=== PATIENT | male | born 1945 | race Caucasian/White ===

== ENCOUNTER 2023-11-18 14:17 | Outpatient (AMB) | payer MEDICARE, OTHER, SELFPAY ==
--- NOTE | 2023-11-18 14:31 | MHC.OFFVIS ---
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 (will get [facility] record) Improvement Analyst Required: No Accompanied by: Spouse Allergies lisinopril Adverse Reaction (Mild, Verified 11/18/23 14:39) Cough Medication List - Last Reconciled 11/18/23 by Nabil Mar MD amlodipine 5 mg PO DAILY qszwlfz-ilrofivfczomu-pzfaooij 250-250-65 mg (Excedrin Extra Strength) 2 tabs PO Q6H PRN atorvastatin 40 mg PO DAILY benzonatate 100 mg PO BID PRN cholecalciferol (vitamin D3) 50 mcg PO DAILY coQ10 (ubiquinol) (Qunol Devante CoQ10) 100 mg PO DAILY diphenhydramine HCl (Benadryl Allergy) 25 mg PO BEDTIME PRN fluticasone propionate 50 mcg/actuation (Flonase Allergy Relief) 1 spray intranasal DAILY furosemide (Lasix) 20 mg PO DAILY magnesium glycinate mg PO metoprolol succinate ER (Toprol XL) 100 mg PO DAILY olmesartan 5 mg PO DAILY HPI Comments Details: Allen is here for consultation regarding coronary disease. 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 Apparently one of his friends referred him to our group. He has a history of coronary artery disease and underwent an LAD stent around 2003. At that time, it seems that he really did not have any NSTEMI or angina but some abnormal test but not very clear what happened. Any case, he has been stable from coronary status since that time. He has a history of hypertension and that has been difficult to manage recently. Apparently his calcium was going high and hence it was thought that the hydrochlorothiazide that he was taking might play a role and it was stopped. After that, his blood pressures have been running higher. Some med changes have been made through primary care including addition of amlodipine. Losartan has been switched to olmesartan. However, blood pressure is still on the higher side but lower than office reading here. Otherwise, for the most part he is doing fine. No clear-cut angina or in fact any cardiac symptoms. He would like to establish care with us. [facility] Medical History (Updated 11/18/23 @ 16:04 by Nabil Mar MD) Back pain Transient ischemic attack Osteoarthritis Hydrocele Cataract Left anterior fascicular block Right bundle branch block PVC (premature ventricular contraction) Essential hypertension Atherosclerotic cardiovascular disease Surgical History (Updated 11/18/23 @ 16:04 by Nabil Mar MD) H/O spinal fusion Family History Father Heart attack Diabetes Social History (Updated 11/18/23 @ 14:45 by Clemencia Mack CMA) Alcohol intake: current Comment: 1-2 glasses of wine daily Patient Tobacco Use Status: Former Tobacco user Review of Systems Const Denies chills, Denies daytime sleepiness, Denies fatigue, Denies fever(s), Denies poor appetite, Denies snoring, Denies stops breathing during sleep, Denies weakness, Denies weight gain and Denies weight loss Eyes Denies loss of vision ENT Denies dizziness and Denies hearing loss Card Denies chest pain, Denies irregular heart rhythm, Denies claudication, Denies leg edema, Denies lightheadedness, Denies palpitations, Denies dyspnea on exertion and Denies orthopnea Resp Denies cough, Denies excessive phlegm production, Denies dyspnea on exertion, Denies snoring and Denies wheezing GI Denies abdominal pain, Denies hematochezia, Denies change in bowel habits, Denies nausea and Denies vomiting Denies dysuria and Denies urinary frequency Musc Denies arthralgias, Denies muscle weakness, Denies numbness and Denies other Skin/Breast Denies nail changes and Denies rash Neuro Denies Abnormal speech present, Denies dizziness, Denies loss of vision, Denies memory loss, Denies numbness and Denies weakness Psych Denies depression and Denies memory loss Endo Denies fatigue and Denies palpitations Richard/Lymph Denies easy bruising Aller/Immun Denies wheezing Physical Exam Vital Signs: Last Vital Signs Pulse 57 11/18/23 14:38 BP 164/80 H 11/18/23 14:38 BMI result Body Mass Index 32.0 Const General: comfortable and no acute distress Orientation/consciousness: patient oriented x3 HEENT Other: Unremarkable Head: Yes normal to inspection Neck Neck: Yes normal visual inspection Chest Chest palpation & inspection: normal inspection of the chest Resp Auscultation: clear to auscultation bilaterally Cardio Palpation: normal PMI Heart sounds: S1 normal heart sound present, S2 normal heart sound present, no gallops, no murmurs and no rubs GI Palpation (GI): Soft to palpation Back/Spine/Pelvis Other: unremarkable Skin General skin exam: no rashes or lesions noted Neuro General: patient oriented x3 Speech: No Abnormal speech present Extrem General: Yes normal to inspection Psych Mental Status: mental status grossly normal Office Procedures EKG Details: EKG with underlying sinus bradycardia at 57/Min; right bundle-branch block pattern; inferior and anterolateral T inversions. We do not have any prior EKGs for comparison. Requested. Per description, last EKG from 2002 had reported sinus rhythm, PACs, 60/Min; right bundle-branch block/left anterior fascicular block. [id number], Complete Assessment & Plan Assessment & Plan (1) Atherosclerotic cardiovascular disease: Code(s): I25.10 - Atherosclerotic heart disease of [place] coronary artery without angina pectoris Category: Medical Plan: History of LAD stent at [facility] -2003. At that time, no significant lesions in circumflex/RCA. Ideally, baby aspirin but he takes a combination pill which has a higher dose of aspirin. There is slightly had chance of GI bleeding risk and we discussed that today. Avoid other agents like NSAIDs. Continue statins. LDL is fairly well controlled. Last LDL 60 mg/dL. Triglycerides slightly high at 190 mg/dL. LFTs slightly abnormal but he believes he has had hepatitis many years ago. In the echocardiogram from [facility] from 2022-LVEF 55%; moderate diastolic dysfunction; no significant LVH; mild left atrial dilatation. Will obtain the last stress test which he believes is probably a few years ago. (2) Essential hypertension: Code(s): I10 - Essential (primary) hypertension Category: Medical Plan: Home blood pressures are slightly lower than current reading but still not normal. Off HCTZ due to hypercalcemia. Current meds can be optimized further. We can go up on the amlodipine. There is a concern for leg swelling but I do believe it may not be all medication related and could be just orthopedic related to ankle issues. He will take 2 of the amlodipine 5 mg tablets and make sure he does not get any other issues like worsening leg swelling. If so, we can make amlodipine 10 mg as the new dose. Otherwise, he is also on olmesartan and that may need to be increased in the future. Or just go back to his previous dose of Losartan. Doubt any true secondary hypertension causes but will keep that in mind. (3) PVC (premature ventricular contraction): Code(s): I49.3 - Ventricular premature depolarization Category: Medical Plan: History of PVCs, but do not see any active issues. Coding Level of Care Code New Pt Level 4 (80846) Diagnoses Atherosclerotic cardiovascular disease I25.10 Essential hypertension I10 PVC (premature ventricular contraction) I49.3 CPT Codes EKG - CPT: 02629-[id number], Complete ([id number])
[2023-11-18 14:38] VITALS: BP 164/80; PULSE 57; BMI 32.0
== END 2023-11-18 15:23 | disposition home or self-care (01) ==
PROVIDERS: PCP Internal Medicine; Visit Provider Internal Medicine
DX: I25.10 Atherosclerotic heart disease of native coronary artery without angina pectoris (principal); I10 Essential (primary) hypertension; I49.3 Ventricular premature depolarization
CPT/HCPCS: 93010; 99204

== ENCOUNTER → 2023-11-18 14:17 | Outpatient (BNVA) | payer MEDICARE, OTHER, SELFPAY | PROVIDERS: PCP Internal Medicine; Visit Provider Internal Medicine | DX: I25.10 Atherosclerotic heart disease of native coronary artery without angina pectoris (principal); I10 Essential (primary) hypertension; I45.2 Bifascicular block; I49.3 Ventricular premature depolarization | CPT/HCPCS: 93005; 99202 ==

== ENCOUNTER → 2023-12-30 08:02 | Outpatient (REF) | payer MEDICARE, OTHER, SELFPAY ==
--- NOTE | ~2023-12-30 | NM_ITS ---
Lexiscan Myocardial perfusion study Indication: Precordial chest pain to evaluate for myocardial ischemia Technique: The patient was brought in for a Lexiscan perfusion study on 12/30/2023 and was injected 0.4 mg of Lexiscan intravenously. Within a minute of this injection 30 mCi of sestamibi was given intravenously. Images were obtained using the SPECT gamma camera interlaced with the gating device. Images were obtained in supine position. Resting perfusion study was performed on 01/01/2024. Patient was administered 30 mCi of sestamibi intravenously at rest. Images were then obtained in supine position. Images obtained without without CT attenuation. Total DLP 80 mGy-cm. Images were processed with the software and compared side to side in short axis, horizontal long axis and vertical long axis views. Findings: The stress perfusion study showed nonattenuated images show moderately reduced uptake in the inferior, inferoseptal and absent uptake in the mid and distal inferolateral and absent uptake in the basal inferolateral wall of the LV myocardium. Attenuated corrected images shows absent uptake in the basal inferolateral with mildly reduced uptake in the basal lateral wall of the LV myocardium.. The gated study shows normal LV systolic function with calculated LVEF of 55%. LV cavity is mildly dilated in size. The gated study shows reduced wall thickening and contraction of basal inferolateral segments. Resting study shows no change in perfusion pattern compared to stress perfusion study. Gating at rest reveals well inferolateral wall motion with ejection fraction at 47%. The findings are consistent with fixed basal inferolateral defect consistent with possible infarct in that area. Severe ischemia cannot be entirely ruled out although less likely. No clear reversible defect in the other segments.. NM/NM cardiolite stress test Impression: 1. Myocardial perfusion imaging study shows no evidence for ischemia would basal inferolateral myocardial infarction. 2. Gated LVEF is 55% 3. Transient ischemic dilatation not present Nondiagnostic changes on EKG. Electronically signed by: Chadwick Arroyo MD 01/01/2024 04:24 PM EDT
--- NOTE | 2023-12-30 08:09 | CA_ITS ---
Acquisition Time: 2023-12-30 09:01:43 Total Exercise Time: 00:02:00 Test Indications: Chest Pain Medications: SEE H Protocol: LEXISCAN Max HR: 085 BPM 59% of Pred: 143 BPM Max BP: 160/082 mmHG Max Work Load: 1.0 METS Pharmacological stress test with Lexiscan while sitting and marching in place, without anginal symoptoms, with isolated PVCs , ventricular cuplets, with resting HTN, with normotensive response to injection, with nondiagnoisitic EKGs. Nuclear images pending. Test reviewed with Dr. Mar. Referred By: Nabil Mar Overread By: Mary Kate Sylvester
--- NOTE | 2023-12-30 08:09 | CA_ITS ---
Transthoracic Echocardiogram Patient (Last, First, Middle): Allen Willis, Gender: Male Date of : 1945 Age: 78 Procedure Date: 12/30/2023 Procedure Type: Transthoracic Echocardiogram Location: OP Height: 167.64 cm Weight: 86.18 kg BSA: 1.96 m2 Heart Rate: 61 bpm BP: 165 / 90 mmHg Urologist: CHAPINCITO Referring MD: Nabil Mar MD Symptoms: I25.10 - Atherosclerotic heart disease of [place] coronary artery without... Study Quality: Adequate w/Contrast ECG Rhythm: Sinus Conclusions: - The left ventricular systolic function is normal. The calculated ejection fraction is 63% by biplane method. - The basal inferolateral segment is hypokinetic. - No obvious valvular pathology seen on this study. Findings Procedure Information Contrast agent, definity, is being given per protocol without apparent complications. Left Ventricle Normal left ventricular cavity size. There is mildly increased left ventricular wall thickness. The left ventricular systolic function is normal. The calculated ejection fraction is 63% by biplane method. Evidence suggests grade I (mild) diastolic dysfunction. Wall Motion Rest Echo Findings The basal inferolateral segment is hypokinetic. Right Ventricle Mildly increased right ventricular cavity size. There is normal right ventricular systolic function. Atria Both atria are normal in size. Aortic Valve There is a normal trileaflet aortic valve. There is no aortic valve stenosis. There is no aortic valve regurgitation. Mitral Valve The mitral valve appears normal. There is no mitral valve regurgitation. There is no mitral valve stenosis. Pulmonic Valve The pulmonic valve is likely normal. Tricuspid Valve There is trace tricuspid valve regurgitation. There is no evidence of pulmonary hypertension. Great Vessels The asc aorta is normal in size. Venous The inferior vena cava is mildly dilated and collapses greater than 50% with inspiration. Pericardium/Pleural There is no evidence of pericardial effusion. Prior Study Comparison No prior study available for comparison. Recommendations, Care & Conclusions No obvious valvular pathology seen on this study. Measurements 2D Linear Measurements IVSd: 1.11 0.6-0.9/0.6-1.0 cm LVIDd: 4.72 3.9-5.3/4.2-5.9 cm LVIDd Index: 2.41 2.4-3.2/2.2-3.1 cm/m2 LVIDs: 2.82 2.0-3.6 cm LVPWd: 1.04 0.7-1.1 cm LA Diam: 4.80 2.7-3.8/3.0-4.0 cm LAIDs Index: 2.45 1.5-2.3 cm/m2 LV Mass: 227.85 67-162/88-224 g LV Mass Index: 116.25 43-95/49-115 g/m2 LVOT Diam: 2.00 3.0+(-)1.3 cm 2D Systolic Function EF 4C: 56.70 >55% EF 2C: 69.20 >55% EF BiP: 63.20 >55% Mitral Valve MV Pk E: 0.40 MV PK A: 1.01 MV Decel Time: 342.00 E/A: 0.40 E'Lateral: 6.85 E'Medial: 4.68 E/E' Med: 8.60 E/E' Lat: 5.90 PHT: 100.00 MVA PHT: 2.20 Decel Evans: 1.18 Aortic Valve AoV Pk Daquan: 1.55 AoV Mn Daquan: 1.04 AoV VTI: 0.37 AoV Pk Grad: 10.00 Aov Mn Grad: 5.00 WILLIAM Cont.VTI: 2.15 LVOT LVOT Pk Daquan: 1.02 LVOT Mn Daquan: 0.69 LVOT VTI: 0.26 LVOT Pk Grad: 4.00 LVOT Mn Grad: 2.00 LVOT Diam: 2.00 LVOT Area: 3.14 Diastolic Function MV Pk E: 0.40 MV Pk A: 1.01 E/A: 0.40 E'Medial: 4.68 E/E' Med: 8.60 E' Laterial: 6.85 E/E' Lat: 5.90 Right Ventricle TAPSE (mm): 30.00 TVS' Daquan: 13.70 Great Vessels Aorta Sinus of Valsalva: 3.10 2.0-3.5 cm Ao Asc: 3.30 2.1-3.4 cm Pulmonary Valve PV Pk Daquan: 1.15 Peak PV Grad: 5.00 Updated in Other Vendor System with Status of Final Nabil Mar MD electronically signed on 01/01/2024 11:05:02 AM with status of Final
== END ==
LOC: HO.CARD 08:02
PROVIDERS: PCP Internal Medicine; Visit Provider Internal Medicine
DX: R07.2 Precordial pain (principal); I25.119 Atherosclerotic heart disease of native coronary artery with unspecified angina pectoris
CPT/HCPCS: 78452; 93017; 93306; A9500; J0280; J2785; Q9957

== ENCOUNTER → 2023-12-30 08:09 | Outpatient (BNV) | payer MEDICARE, OTHER, SELFPAY | PROVIDERS: PCP Internal Medicine; Visit Provider Nurse Practitioner | DX: R07.2 Precordial pain (principal); I25.10 Atherosclerotic heart disease of native coronary artery without angina pectoris; I51.89 Other ill-defined heart diseases; R93.1 Abnormal findings on diagnostic imaging of heart and coronary circulation | CPT/HCPCS: 78452; 93016; 93018; 93320; 93325; 93350; 93352 ==

== ENCOUNTER 2024-01-22 10:14 | Outpatient (REF) | payer MEDICARE, OTHER, SELFPAY ==
--- NOTE | ~2024-01-22 | US_ITS ---
EXAMINATION: US VENOUS BILATERAL LOWER EXTREMITIES (REFLUX EXAM) CLINICAL INDICATION: Chronic venous insufficiency COMPARISON: None TECHNIQUE: Color flow triplex imaging and compression Doppler was performed to evaluate both the deep and the superficial systems bilaterally. To evaluate the superficial system, the examination was performed in the upright position. Color-flow Doppler ultrasound and compression ultrasound were utilized. In addition, maneuvers were utilized to demonstrate reflux. FINDINGS: 1. DEEP VENOUS ULTRASOUND OF THE RIGHT LOWER EXTREMITY: Respiratory variation, normal compression and augmented flow are noted in the right common femoral vein as well as the right popliteal vein and there is no evidence of deep venous thrombosis at these locations. There is no evidence of reflux in the deep system in either the common femoral vein or the popliteal vein. There is no evidence of a Jim's cyst. 2. SUPERFICIAL ULTRASOUND WITH DOPPLER OF RIGHT LOWER EXTREMITY: The right great saphenous vein at the saphenofemoral junction measures 7 mm, at the proximal thigh 6 mm, at the mid thigh 5 mm, above the knee 4 mm, at the knee 4 mm, ixfdx-hcy-fuyy 4 mm, midcalf 4 mm and at the ankle measures 4 mm. There is reflux in the great saphenous vein at the ankle for 2.1 seconds Duplicated Right Great Saphenous Vein: There is a 3 mm accessory lateral saphenous that does not reflux The right small saphenous vein measures 4 mm and shows no reflux. Accessory Vein of Giacomini: None Incompetent Perforators: None Varices Present: Some nonrefluxing 0.3 cm varices are noted in the proximal calf. 3. DEEP VENOUS ULTRASOUND OF THE LEFT LOWER EXTREMITY: Respiratory variation, normal compression and augmented flow are noted in the left common femoral vein as well as the left popliteal vein and there is no evidence of deep venous thrombosis at these locations. There is no evidence of reflux in the deep system in either the common femoral vein or the popliteal vein. There is no evidence of a Jim's cyst. 4. SUPERFICIAL ULTRASOUND WITH DOPPLER OF LEFT LOWER EXTREMITY: Left great saphenous vein at the saphenofemoral junction measures 7 mm, at the proximal thigh 4 mm, at the mid thigh 4 mm, above the knee 3 mm, at the knee 4 mm, [id number]-[id number] 4 mm, midcalf 3 mm and at the ankle measures 4 mm. There is reflux present of greater than 2 seconds below the knee in the left great saphenous vein. Duplicated Left Great Saphenous Vein: There is a 3 mm accessory left saphenous vein that does not reflux. The left small saphenous vein measures 3 mm and and demonstrates 0.6 cm of reflux in the distal calf Accessory Vein of Giacomini: None Incompetent Perforators: None. Varices Present: 0.3 cm varix is noted in the mid calf. There is a 0.5 cm area of shadowing calcification seen in the left mid calf which could represent a calcified varix. US/US venous insuf bilat IMPRESSION: 1. No evidence of reflux or thrombus in the common femoral veins or popliteal veins bilaterally. 2. There is reflux in the right great saphenous vein at the ankle. 3. There is reflux in the left great saphenous vein below the knee. 4. There is reflux in the left small saphenous vein in the distal calf. Electronically signed by: Howie Mann MD 01/25/2024 10:20 AM EDT
== END 2024-01-22 10:15 | disposition home or self-care (01) ==
LOC: HO.US 10:14
PROVIDERS: PCP Internal Medicine; Visit Provider Internal Medicine
DX: I87.2 Venous insufficiency (chronic) (peripheral) (principal)
CPT/HCPCS: 93970

== ENCOUNTER 2024-02-23 12:56 | Outpatient (AMB) | payer MEDICARE, OTHER, SELFPAY ==
--- NOTE | 2024-02-23 13:14 | MHC.OFFVIS ---
Vital Signs 02/23/24 13:15 Height 5 ft 6 in Weight 198 lb 6.656 oz BMI 32.0 BP 140/78 H Blood Pressure Location Lt brachial Position Sitting Pulse 72 Pulse Source Pulse Oximeter Intake Visit Reasons: 3 mth f/up Allergies lisinopril Adverse Reaction (Mild, Verified 11/18/23 14:39) Cough Medication List - Last Reconciled 02/23/24 by aNbil Mar MD amlodipine 10 mg PO DAILY nczflfn-jtdqlcutkyrmq-zhrgrhxl 250-250-65 mg (Excedrin Extra Strength) 2 tabs PO Q6H PRN atorvastatin 40 mg PO DAILY cholecalciferol (vitamin D3) 50 mcg PO DAILY diphenhydramine HCl (Benadryl Allergy) 25 mg PO BEDTIME PRN furosemide 40 mg PO DAILY magnesium glycinate mg PO metoprolol succinate ER (Toprol XL) 100 mg PO DAILY olmesartan 40 mg PO DAILY HPI Comments Details: Allen returns for follow-up. He was previously seen regarding coronary artery disease. He lives in the [facility] but apparently has a problem having a consistent community health worker and hence he would like to be seen here. Apparently one of his friends referred him to our group. He has a history of coronary artery disease and underwent an LAD stent around 2003. At that time, it seems that he really did not have any NSTEMI or angina but some abnormal test but not very clear what happened. Any case, he has been stable from coronary status since that time. He has a history of difficult to manage hypertension. He was on hydrochlorothiazide but apparently the calcium was going up and it was stopped. His current meds include olmesartan, metoprolol and amlodipine and he has good from that standpoint. Home diary shows good blood pressure control. He does not have any angina or in fact any cardiac symptoms at all. He is able to stay active without any cardiac limitations. He does notice some additional leg swelling after starting amlodipine but not too bothersome. Overall, he seems to be satisfied. COUNT INCLUDES THE [facility] Medical History (Updated 02/23/24 @ 16:04 by Nabil Mar MD) Back pain Transient ischemic attack Osteoarthritis Hydrocele Cataract Left anterior fascicular block Right bundle branch block PVC (premature ventricular contraction) Essential hypertension Atherosclerotic cardiovascular disease Surgical History (Updated 11/18/23 @ 16:04 by Nabil Mar MD) H/O spinal fusion Family History Father Heart attack Diabetes Social History (Updated 11/18/23 @ 14:45 by Clemencia Mack CMA) Alcohol intake: current Comment: 1-2 glasses of wine daily Patient Tobacco Use Status: Former Tobacco user Review of Systems Const Denies weakness ENT Denies dizziness Card Denies chest pain, Denies chest pain with activity, Denies syncope, Denies rapid heart rate, Denies pedal edema, Denies edema, Denies leg edema, Denies lightheadedness, Denies palpitations, Denies dyspnea, Denies dyspnea on exertion and Denies orthopnea Resp Denies cough, Denies dyspnea and Denies dyspnea on exertion GI Denies hematochezia and Denies change in stool character Musc Denies abnormal gait, Denies muscle cramps, Denies muscle weakness, Denies numbness, Denies radiating pain into limb and Denies tingling Neuro Denies Abnormal speech present, Denies abnormal gait, Denies dizziness, Denies syncope, Denies numbness, Denies tingling and Denies weakness Endo Denies palpitations Physical Exam Vital Signs: Last Vital Signs Pulse 72 02/23/24 13:15 BP 140/78 H 02/23/24 13:15 BMI result Body Mass Index 32.0 Const General: comfortable and no acute distress Orientation/consciousness: patient oriented x3 HEENT Other: Unremarkable Head: Yes normal to inspection Neck Neck: Yes normal visual inspection Chest Chest palpation & inspection: normal inspection of the chest Resp Auscultation: clear to auscultation bilaterally Cardio Palpation: normal PMI Heart sounds: S1 normal heart sound present, S2 normal heart sound present, no gallops, no murmurs and no rubs GI Palpation (GI): Soft to palpation Back/Spine/Pelvis Other: unremarkable Skin General skin exam: no rashes or lesions noted Neuro General: patient oriented x3 Speech: No Abnormal speech present Extrem Other: 1+ swelling, R>L General: Yes normal to inspection Psych Mental Status: mental status grossly normal Assessment & Plan Assessment & Plan (1) Atherosclerotic cardiovascular disease: Code(s): I25.10 - Atherosclerotic heart disease of [place] coronary artery without angina pectoris Category: Medical Plan: History of LAD stent at [facility] -2003. At that time, no significant lesions in circumflex/RCA. In the echocardiogram, LVEF 63%. Basal inferolateral hypokinesis. No significant valvular findings. Myocardial perfusion imaging study shows no ischemia. Basal inferolateral infarct. Findings discussed with patient. Clinically, he has got absolutely no angina. We discussed about possibility of a diagnostic catheterization but after reviewing options including medical therapy versus invasive strategies, we agreed on just stay on medical therapy as he has got no symptoms. He also would prefer that as opposed to catheterization. If any clear angina, that will need to be re-assessed and he will contact us immediately. Ideally, baby aspirin, but he takes a combination pill which has a higher dose of aspirin. There is slightly had chance of GI bleeding risk and that was discussed prior visit. Avoid other agents like NSAIDs. Continue statins. LDL is fairly well controlled. Last LDL 60 mg/dL. Triglycerides slightly high at 190 mg/dL. LFTs slightly abnormal but he believes he has had hepatitis many years ago. (2) Essential hypertension: Code(s): I10 - Essential (primary) hypertension Category: Medical Plan: Current regimen includes metoprolol, olmesartan, amlodipine. Home diary shows good control of blood pressures. Off hydrochlorothiazide due to history of hypercalcemia. If we stopped the amlodipine because of leg swelling, likely that it will rebound. Do not have any other alternatives apart from hydralazine or possibly spironolactone. Again we eventually decided to leave the meds without changes. (3) Venous insufficiency: Code(s): I87.2 - Venous insufficiency (chronic) (peripheral) Category: Medical Plan: In the recent venous ultrasound, reflux in the right great saphenous vein at the ankle; left great saphenous vein and left small saphenous vein. Discussed with Interventional Radiology on it was felt that it is not significant enough to cause any major issues. Hence recommended conservative therapy. He is using compression stockings and that can be continued. Plan Discussed with significant other. Coding Level of Care Code Est Pt Level 4 (18484) Diagnoses Atherosclerotic cardiovascular disease I25.10 Essential hypertension I10 Venous insufficiency I87.2
[2024-02-23 13:15] VITALS: BP 140/78; PULSE 72; BMI 32.0
== END 2024-02-23 13:47 | disposition home or self-care (01) ==
PROVIDERS: PCP Internal Medicine; Visit Provider Internal Medicine
DX: I25.10 Atherosclerotic heart disease of native coronary artery without angina pectoris (principal); I10 Essential (primary) hypertension; I87.2 Venous insufficiency (chronic) (peripheral)
CPT/HCPCS: 99214

== ENCOUNTER → 2024-02-23 12:56 | Outpatient (BNVA) | payer MEDICARE, OTHER, SELFPAY | PROVIDERS: PCP Internal Medicine; Visit Provider Internal Medicine | DX: I25.10 Atherosclerotic heart disease of native coronary artery without angina pectoris (principal); I10 Essential (primary) hypertension; I87.2 Venous insufficiency (chronic) (peripheral) | CPT/HCPCS: 99212 ==

== ENCOUNTER → 2024-04-05 10:16 | Outpatient (REF) | payer MEDICARE, OTHER, SELFPAY ==
--- OUTSIDE RECORDS SUMMARY | 2024-04-05 10:19 | XMS_ITS ---
Author Organization Bill Contreras MD Address [address] [place] [address] Care Team Providers Care Sandblaster Paint Sprayer Name Role Phone Gene Lopez MD Primary Care Provider Unavail able Bill Contreras [facility] [phone] Encounters Encounter Location Date Provider Diagnosis Bill Contreras MD [facility] [address] [facility] [place] [address] 11/05/2023 Bill Contreras PLAN OF TREATMENT No Information Progress Notes * Allen TOLLIVER ODOB: [birth year] (78 yo M)Acc No.[id number]:11/05/2023 Progress Notes Patient:??Allen TOLLIVER Provider:??Bill Contreras MD :1945?Age:78 Y?Sex:Ma le Date:11/05/2023 Address:[address] [id number] Pcp:Gene Lopez MD Subjective: * Chief Complaints: * ? * Medical History:?? Objective: Assessment: Plan: * Treatment: * Images: * Sign off status: Pending * Provider:??Bill Contreras MD Date:??
--- OUTSIDE RECORDS SUMMARY | 2024-04-05 10:19 | XMS_ITS | Patient Health Record ---
Author Organization Bill Contreras MD Address [address] [place], [place] [address] Care Team Providers Care Vendor Analyst Name Role Phone Gene Lopez MD Primary Care Provider Unavail able Bill Contreras Unavailable [phone] ALLERGIES Allergen (clinical drug ingredient) Drug/Non Drug Allergy documented on EMR Reaction Allergy Type Onset Date Status N.K.D.A. (uncoded) Unknown Allergy A ctive MEDICATIONS Medication SIG (Take, Route, Fr equency, Duration) Notes Start Date End Date Status Toprol XL Active Multivitamins Active Lipitor Active Hydrochloric Acid Ac tive Losartan Potassium A ctive Aspirin Active PROBLEMS Problem Type ICD Code Onset Dates Problem Status W/U Status Risk SNOMED Code Notes Problem Encounter for follow-up examination after completed treatment for conditions other than malignant neoplasm (Z09) Active confirmed History and physical examination, follow-up (786475792) Problem Encounter for other specified surgical aftercare (Z48.89) Active confirmed Postoperative care (259723814) Problem Lumbar spondylosis (M47.816) Active confirmed Lumbar spondylosis (831720349) Problem Lumbar spondylosis with myelopathy (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) Active confirmed 19521407 Problem Thoracic spondylosis (M47.814) Active confirmed Thoracic spondylosis (987694861) Encounters Encounter Location Date Provider Diagnosis Bill Contreras MD [facility] [address] [place] [address] 07/23/2023 Bill Contreras MD PC [address] [place] [address] 05/21/2023 Bill Contreras MD PC [address] [place] [address] 07/25/2023 Bill Contreras MD PC [address] [place] [address] 08/28/2023 Bill Contreras MD PC [address] [place] [address] 08/28/2023 Bill Contreras MD PC [address] [place] [address] 10/01/2023 Bill JIMENEZ [address] [place] [address] 10/01/2023 Bill Contreras MD PC [address] [place] [address] 10/01/2023 Bill Contreras MD PC [address] [place] [address] 10/03/2023 Bill Contreras MD PC [address] [place] [address] 10/07/2023 Bill Contreras MD PC [address] [place] [address] 11/04/2023 Bill Contreras MD PC [address] [place] [address] 11/04/2023 Bill Contreras MD PC [address] [place] [address] 07/23/2023 Bill Contreras Encounter for follow-up examination after completed treatment for conditions other than malignant neoplasm Z09 ; Encounter for other specified surgical aftercare Z48.89 and Lumbar spondylosis M47.816 Bill Contrersa MD PC [address] [place] [address] 11/05/2023 Bill Contreras ASSESSMENTS Encounter Date Diagnosis Assessment Notes Treatment Notes Treatment Clinical Notes Section Notes 07/23/2023 Encounter for follow-up examination after completed treatment for conditions other than malignant neoplasm (ICD-10 - Z09) Mr. Willis is a 77 y/o M, s/p S93-Texjye PSF w/ L5-S1 TLIF (02/23/2019). He is [...] specified surgical aftercare (ICD-10 - Z48.89) Mr. Willis is a 77 y/o M, s/p P77-Wniohy PSF w/ L5-S1 TLIF (02/23/2019). He is [...] 07/23/2023 Lumbar spondylosis (ICD-10 - M47.816) Mr. Willis is a 77 y/o M, s/p C02-Mjccoh PSF w/ L5-S1 TLIF (02/23/2019). He is [...] onset of pain, weakness, or numbness/tinglin g. PLAN OF TREATMENT Pending Test Test Name Order Date COMPLETE BLOOD COUNT W PLT - CBC COMPLETE BLOOD COUNT W PLT - CBC 019 COMPLETE BLOOD COUNT W PLT - CBC 019 COMPLETE BLOOD COUNT W PLT - CBC 019 COMPLETE BLOOD COUNT W PLT - CBC 019 ELECTROLYTES - LYTES 02/23/2019 PASU PANEL - PASU PANEL 02/04/2019 BASIC METABOLIC PANEL - BMP 02/27/2019 SODIUM - NA 02/25/2019 POTASSIUM - K 02/25/2019 GLUCOSE - GLU 02/23/2019 CREATININE - CR 02/25/2019 CALCIUM - CA 02/23/2019 MAGNESIUM - MG 02/23/2019 MAGNESIUM - MG 02/27/2019 MAGNESIUM - MG 02/25/2019 MRSA/MSSA PCR 02/04/2019 TS Automated 02/23/2019 XM 02/23/2019 TSAPASU 02/04/2019 CT LUMBAR SPINE WITHOUT CONTR 08/16/2020 CT LUMBAR SPINE WITHOUT CONTR 09/30/2019 SURG 02/23/2019 CT Scan : Thoracic Spine 09/25/2021 Insurance Providers Payer Name Payer Address Payer Phone Subscriber Number Group Number Insured Name Patient Relationship to Insured Coverage Start Date Coverage End Date MEDICARE [address] [facility] [place] [id number] [phone] [id number] Allen Willis Self - patient is the insured [employer] Supplement [address] [place] [id number] Allen Willis Self - patient is the insured MEDICAL (GENERAL) HISTORY Medical History History ICD Code BPH Hyperlipidemia Hyperntesion CAD - SP cardiac stenting COPD - asthma OA Surgical History Surgery Date(Month/Year) right ankle fusion right MARIELLE left TKA cataract removal
--- OUTSIDE RECORDS SUMMARY | 2024-04-05 10:19 | XMS_ITS ---
Author Organization Bill Contreras MD Address [address] [facility] [address] [place], [place] [address] Care Team Providers Care Wilton Weaver Name Role Phone Gene Lopez MD Primary Care Provider Unavail able Bill Contreras [facility] [phone] REASON FOR VISIT RE:Surgery December 31 Encounters Encounter Location Date Provider Diagnosis Bill Contreras MD PC [address] [facility] [address] [place] [address] 11/04/2023 Bill Contreras PLAN OF TREATMENT No Information Progress Notes * Allen TOLLIVER ODOB: [birth year] (78 yo M)Acc No.[id number]:11/04/2023 Patient:??Allen TOLLIVER :1945?Age:78 Y?Sex:Jc le Address:[place], [address] * true * Date:??
--- OUTSIDE RECORDS SUMMARY | 2024-04-05 10:19 | XMS_ITS ---
Author Organization Bill Contreras MD Address [address] [facility] [address] [place], [place] [address] Care Team Providers Care Manufacturing Lab Technician Name Role Phone Gene Lopez MD Primary Care Provider Unavail able Bill Contreras [facility] [phone] REASON FOR VISIT Surgery December 31 Encounters Encounter Location Date Provider Diagnosis Bill Contreras MD PC [address] [place] [address] [place] [address] 11/04/2023 Bill Contreras PLAN OF TREATMENT No Information Progress Notes * Allen TOLLIVER ODOB: [birth year] (78 yo M)Acc No.[id number]:11/04/2023 Patient:??Allen TOLLIVER :1945?Age:78 Y?Sex:Jc charles Address:[place], [address] * true * Date:??
--- OUTSIDE RECORDS SUMMARY | 2024-04-05 10:20 | XMS_ITS | Data Portability ---
Author Organization [facility] Office Address [address] [place] [address] Care Team Providers Care Sandwich Hand Name Role Phone SEKOU BRADLEY Primary Care Provider [phone] Assessment Encounter Date Assessment Date Assessment LastModified by Organization Details LastModified Time 12/22/2019 12/22/2019 PLAN: The patient is doing quite well with this type of brace and is able to function, play golf, walk normally and safe. We had a discussion that since his broke after having it 2 years he is not able to use the brace at this time. I will send a note after reviewing his [place] medical record and discussion with him that this brace is necessary. He agrees with this plan and will follow up on a p.r.n. basis. Total time spent on the phone and reviewing the patient? s chart was 12 minutes, greater than 50% devoted to counseling and coordinating care. [email or web address] Not available 12/23/2019 19:06:49 10/10/2020 10/10/2020 Diagnostic Imaging: Grashey, axillary, and humerus views of Right shoulder shows severe decreased glenohumeral joint space narrowing, osteophyte formation. Normal acromiohumeral space. Assessment/Plan: This is a 75yo M who presents with right shoulder pain seeking second opinion regarding non-surgical management for his severe right shoulder osteoarthritis. Xray in office today exhibits changes consistent with severe osteoarthritis which correlates with XR and MRI from 3 weeks prior that patient received in [place]. Patient has full range of motion with very little pain. At this time, surgical intervention is not recommended. Educated patient regarding non-surgical interventions remaining including cortisone injections for pain. Offered cortisone injection for pain with activities but patient declined stating that he did not feel like he needs it at this time. Discussed with patient that if he starts exhibiting more pain in his shoulder with movement, he should re-present for cortisone injection trial. Recommended patient follow up with physical therapy to strengthen deltoid. He will keep me apprised of his status, and will follow up annually, with repeat x-rays to monitor his RIGHT shoulder arthritis. This visit is a [id number] visit during the COVID-19 pandemic. Based on my clinical judgment, I felt that this visit could not be provided safely and appropriately via TeleHealth. Based on available information prior to presentation, the patient had a high risk of significant worsening and potential functional impairment affecting ADLs if the visit was not completed today. The patient was seen in the office after following PPE use, Workforce Safety, Patient Safety and Infection Control protocols for all services provided today in accordance with [facility] and CDC Guidelines. There was additional practice expense incurred due to the Public Health Emergency. This additional expense includes but is not limited to: - Additional clinical staff and medical environmental technical officer time for pre-screening - Time spent reviewing COVID social distancing guidelines, precautions, instructions, and signage - Patient symptom checking upon arrival - Application, removal, and purchasing of additional PPE - Additional cleaning of exam room, equipment, supplies, as well as cleaning supplies for that purpose. This note was dictated with Compa. Please excuse any errors in spelling/transcri ption, which may have changed the context of the sentence. Not available 10/10/2020 15:14:48 08/02/2022 08/02/2022 ASSESSMENT Mr. Willis seems to be doing very well with his orthotic devices and I really cannot improve on those and I do not feel that surgical intervention would provide him any more pain relief or function, so therefore, he is going to continue non-operative treatment as is. He is in agreement with that plan and I will see him back on an as-needed basis. [id number] Not available 08/03/2022 02:15:42 01/27/2023 01/27/2023 Diagnostic Imaging: Grashey, axillary, and humerus views of left shoulder demonstrate good glenohumeral joint. Minimal signs of osteoarthritis including an inferior osteophyte. Assessment/ Plan: This is a 77-year-old male presenting today with left shoulder pain most likely in the setting of a biceps rupture and possible rotator cuff tear. We reviewed his x-rays and the anatomy of the shoulder in detail today. We will order an MRI to evaluate and plan to see him back via telehealth. He did ask about golfing and states that he is able to swing a golf club without pain. I do think it is reasonable for him to continue golfing at this point. We did talk about the bruising around the shoulder as a result of the biceps rupture. We discussed that this should improve with time. He is nontender over the biceps and is able to function, I would not recommend surgery at this time for biceps repair. Patient has no further questions at this time. We'll also schedule a TH for MRI FU. This note was dictated with speech recognition software. Please excuse any errors in spelling/transcri ption, which may have changed the context of the sentence. Not available 01/27/2023 10:12:19 07/23/2023 07/23/2023 PROCEDURE: bilateral shoulder injection MEDICATION: 2 mL Kenalog 40 mg/1 mL, and 2 mL of 0.25% bupivacaine plain (glenohumeral); 1 mL Kenalog 40 mg/1 mL and 1 mL 0.25% bupivacaine plain (subacromial) in each shoulder TREATMENT GIVEN: I confirmed that the patient does not have a history of prior adverse reactions, active infections, or relevant allergies. There was no erythema or warmth, and the skin was clear. After discussion of the risks including, but not limited to infection, localized soreness and swelling, reaction to medications, the patient consented to proceeding with the procedure.?? Under sterile conditions, the shoulder was prepped with alcohol and Betadine. Sterile ultrasound gel and the [employer] Ultrasound was used to ensure accurate needle placement. Using a medial approach and a 20-gauge spinal needle, the glenohumeral injection was performed. The needle was then redirected to the subacromial space, placement confirmed with the ultrasound, and the subacromial injection was performed. Ultrasound images were scanned into the patient's chart. The injection was completed without complication and a Band-Aid was applied. The procedure was repeated on the opposite shoulder. The patient tolerated the procedure well and was instructed to avoid strenuous activity for the next 24-48 hours and use ice, NSAIDs, or Tylenol for pain as needed.?? Not available 07/23/2023 14:55:25 Plan of Treatment Reminders Order Date Submit Date Provider Last Modified By Organization Details Last Modified Time Details Appointments None recorded. Lab None recorded. Referral None recorded. Procedures None recorded. Surgeries None recorded. Imaging MRI, shoulder, w/o contrast - Left shoulder MRIPAS, please call pt to schedule, thank you 2022 023 [email or web address] 3 [facility] [address] [place] [address], [address], 06:53:56 Medication Orders None recorded. Patient TargetsNo targets recorded. Patient InstructionsNo instructions recorded. Reason for Referral None Reported. Results Created Date Observation Date Name Description Value Unit Range Abnormal Flag Note LastModifiedBy Organization Detail LastModifiedTime 08/03/19 img:x r foot and ankle left 5 views No observ ation record ed. [facility] [address], [address] 08/02/2022 15:14:40 08/03/19 img:x r foot and ankle right 5 views No observ ation record ed. [facility] [address], [address] 08/02/2022 15:14:40 08/03/19 23 08/02/2022 xr foot and ankle left 5 views Fin al Report EXAM#: [id number] PROCED URE: DXR 0038 XR FOOT AND ANKLE LEFT 5 VIEWS Aug 02 2022 12:30P M CLINIC AL INDICA TION: PAIN IN LEFT FOOT AND ANKLE Compar jd: 2022 - FINDIN GS: LEFT Ankle bones and joints demons trates tibiot alar valgus alignm ent with marked tilt of the talus, result ing in narrow ing of the medial ankle mortis e and wideni ng latera lly. Superi or aspect of the medial gutter is widene d with corres pondin g wideni ng of the inferi or aspect of the latera l gutter . Small osteop hytes are eviden t. Foot bones and joints demons trates minima l great toe metata rsopha langea l joint space narrow ing. NUMBER OF IMAGES : 6 Report ed by : BRADLEY BOUDREAUX M.D. On: Aug 02 2022 2:27P Signed by: BRADLEY BOUDREAUX M.D. On: Aug 02 2022 2:27[facility] [address] [place], [address], 08/02/2022 15:14:39 08/03/19 23 08/02/2022 xr foot and ankle right 5 views Fin al Report EXAM#: [id number] PROCED URE: DXR 0039 XR FOOT AND ANKLE RIGHT 5 VIEWS Aug 02 2022 12:30P M CLINIC AL INDICA TION: PAIN IN RIGHT FOOT AND ANKLE Compar jd: 2022 - FINDIN GS: RIGHT Ankle bones and joints demons trates 2 intact screws and 16 the tibiot alar joint with solid osseou s fusion . No hardwa re compli cation . Subtal ar joint is congru ent. Mild narrow ing of the talona vicula r joint with small dorsal spurri ng. Calcan eocubo id joint is congru ent. Foot bones and joints demons trates mild hallux valgus . NUMBER OF IMAGES : 6 Report ed by : BRADLEY BOUDREAUX M.D. On: Aug 02 2022 2:28P Signed by: BRADLEY BOUDREAUX M.D. On: Aug 02 2022 2:28P [address] [facility] [address] [place], [address], 08/02/2022 15:14:39 02/08/20 23 02/06/2023 MRI, velma mello, w/o karan Arriola in MRI Center [facility] Access ion Number : [id number] Valerie allen Name: Levy Allen alejandre Jocelynbob magaña Record Number : [id number] Date of : 1945 Date of Exam: 2022 Referr ing Physic mono: Norman Patel [employer] [address] [place] [id number] Exam: MR Should er (C-) CPT 96078 - Left Room Descri ption: Donte Siem Espr 1.5 Clinic al Histor y: Severe left should er pain. Biceps pain. Techni que: MRI of the latera l should er was perfor med withou t intrav enous contra st. Compar jd: None. Findin gs: Bone: Overal l bone marrow signal is mildly hetero geneou s withou t marrow infilt ration . Modera te size inferi or tonya l head osteop hyte format ion. Abnorm al narrow ing of the acromi ohumer al interv al. 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 AC joint: Modera te AC joint arthro sun with large infrac lavicu lar and subacr omial spur format ion. Rotato r cuff: Full thickn ess rotato r cuff tear involv ing the entire ty of the supras pinatu s and infras pinatu s with retrac tion just medial to the glenoi d. High grade articu lar surfac e tear throug hout the footpr int of the subsca pulari s. The teres minor appear s intact . Modera te fatty atroph y of spinat us and supras pinatu s. Mild fatty atroph y of the subsca pulari s. Modera te edema along the anteri or latera l aspect of the deltoi d myoten dinous juncti on. Hetero geneou s area of increa sed T2 signal measur ing 5.7 x 1.4 x 1.7 cm (SI by AP by TRV). Scatte red within this region or a few areas of increa sed T1 signal . Glenoi d labrum and biceps tendon : Labrum is diffus caitlin degene rated. Partia l thickn ess tearin g of the intra- articu lar biceps tendon . The biceps remain s within the bicipi dontae groove . Impres bee: 1. Hetero geneou s collec tion in the anteri or latera l deltoi d on along the myoten dinous juncti on, likely reflec ting intram uscula r hemato ma surrou nding edema. Correl ate with histor y of trauma . This could reflec t hemato ma associ ated with muscul ar tear adjace nt to the myoten dinous juncti on. 2. Massiv e rotato r cuff tear involv ing all the supras pinatu s and infras pinatu s with associ ated fatty atroph y, compat ible with chroni c tear. 3. High grade articu lar surfac e tearin g of the subsca pulari s throug hout the footpr int. 4. Advanc ed glenoh umeral osteoa rthrit is/rot ator cuff arthro sun. 5. Modera te AC joint arthro sun. Electr onical ly Signed By: Porter alejandre MD [facility] ([facility]) [address] [place] [address], [address], 02/07/2023 15:35:55 Result Notes None recorded. 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 2 01:06:03 Enthesopa thy of ankle AND/OR tarsus 84768828 Active 2014 Enthesopa thy of ankle AND/OR tarsus Not Available [facility] 2 01:06:03 Localized , primary osteoarth ritis of the pelvic region and thigh 536735048 Active 2012 Localized , primary osteoarth ritis of the pelvic region and thigh Not Available [facility] 2 01:06:03 History of total knee arthropla sty 55133242539 05 Active 2014 Not [address] [facility] 2 01:06:03 Localized , primary osteoarth ritis 291860036 Active 2014 Localized , primary osteoarth ritis Not Available 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 2 01:06:03 Full thickness rotator cuff tear 955923503 Active 2022 JULY CROOKS [address] [place] [address], [phone] , [facility] 3 15:11:20 Localized , primary osteoarth ritis of the shoulder region 200900719 Active 2023 JULY CROOKS [address] [place] [address], [phone] , [facility] 4 14:55:44 Problem Notes None recorded. Procedures Surgical History Date Name Laterality Status Provider Name and Address Organization Details Recorded Time 01/27/20 20 Other completed Korey Mesa [place] - [facility] 10/10/2020 13:53:07 02/24/20 19 Orthopaedic Surgery completed Korey [place] - [facility] 10/10/2020 13:53:12 01/06/20 15 Orthopaedic Surgery completed Korey [place] - [facility] 10/10/2020 13:52:32 04/07/19 13 Orthopaedic Surgery completed Brooklynn Biswas [place] - [facility] 09/30/2014 11:22:14 04/07/19 12 Orthopaedic Surgery completed Brooklynn Biswas [place] - [facility] 09/30/2014 11:22:14 04/07/19 03 Orthopaedic Surgery completed Brooklynn Biswas [place] [facility] 09/30/2014 11:22:14 04/07/19 02 Orthopaedic Surgery completed Brooklynn Biswas [place] [facility] 09/30/2014 11:22:14 Imaging Results Imaging Date Name Status LastModified by Organiz ation Details LastModified Time 08/02/2022 img:xr foot and ankle left 5 views completed [facility] [address], [place], [address] 08/02/2022 15:14:40 08/02/2022 img:xr foot and ankle right 5 views completed [facility] [address], [place], [address] 08/02/2022 15:14:40 08/02/2022 xr foot and ankle left 5 views completed [email or web address] [facility] [address] [place], [address], 08/02/2022 15:14:39 08/02/2022 xr foot and ankle right 5 views completed [facility] [address] [place], [address], 08/02/2022 15:14:39 02/06/2023 MRI, shoulder, w/o contrast completed [facility] ([facility]) [address] [place] [address], [address], 02/07/2023 15:35:55 Procedure Notes None recorded. Medical Equipment None Reported. Allergies Allergen ID Allergen Name Allergen Category Reaction Reaction Severity Criticality Documentation Date Start Date Code Code System Note Provider Name and Address Organization Details Recorded Time 827252 cat dander environme nt Not available Not available Not available 10/12/2018 Catherine Ochoa [facility] 9 10:11:54 No known drug allergies Medications Name Sig Start Date Stop Date Status Note LastModified by Organization Details LastModified Time losartan 50 mg tablet TAKE 1 TABLET BY MOUTH ONCE DAILY active Not Available Not Available No t Available atorvastati n 40 mg tablet TAKE 1 TABLET BY MOUTH AT BEDTIME active Not Available Not Available No t Available neomycin-po lymyxin-hyd rocort 3.5 mg/mL-10,00 0 unit/mL-1 % ear solution APPLY 2 DROPS TOPICALLY TWICE DAILY active Not Available Not Available No t Available atorvastati n 20 mg tablet TAKE 1 TABLET BY MOUTH ONCE DAILY active Not Available Not Available No t Available aspirin 325 mg tablet Take 1 tablet every day by oral route. 10/12 completed Not Available Not Available Not Available metoprolol succinate ER 50 mg tablet,exte nded release 24 hr TAKE 1 TABLET BY MOUTH ONCE DAILY active Not Available Not Available No t Available prednisone 20 mg tablet TAKE 3 TABLETS BY MOUTH ONCE DAILY IN THE MORNING FOR 7 DAYS, THEN 2 TABS DAILY FOR 2 DAYS, THEN 1 TAB DAILY FOR 2 DAYS, THEN 1/2 (ONE-HALF ) TAB ONCE DAILY FOR 2 DAYS active Not Available Not Available No t Available fluorouraci l 5 % topical cream APPLY CREAM TOPICALLY TO AFFECTED AREA TWICE DAILY FOR TWO TO FOUR WEEKS OR UNTIL THE AREA IS RED AND SCABBY THEN APPLY OVER THE COUNTER HYD 10/10 completed Not Available Not Available Not Available ciprofloxac in 500 mg tablet TAKE 1 TABLET BY MOUTH EVERY 12 HOURS 10/10 completed Not Available Not Available Not Available tramadol 50 mg tablet TAKE 1 TABLET BY MOUTH ONCE DAILY 08/01 completed Not Available Not Available Not Available amoxicillin 500 mg tablet 4 tabs po 1 hour prior to dental work 08/01 completed Not Available Not Available Not Available tamsulosin 0.4 mg capsule 10/10 completed Not Available Not Available Not Available imiquimod 5 % topical cream packet 10/10 completed Not Available Not Available Not Available cephalexin 500 mg capsule TAKE 1 CAPSULE BY MOUTH 4 TIMES DAILY FOR 21 DAYS active Not Available Not Available No t Available gabapentin 300 mg capsule 10/10 completed Not Available Not Available Not Available aspirin 81 mg chewable tablet Chew 1 tablet every day by oral route. active Not Available Not Available No t Available montelukast 10 mg tablet 10/12 completed Not Available Not Available Not Available hydrochloro thiazide 25 mg tablet TAKE 1 TABLET BY MOUTH ONCE DAILY active Not Available Not Available No t Available gabapentin 100 mg capsule 10/10 completed Not Available Not Available Not Available zolpidem 10 mg tablet TAKE 1/2 (ONE-HALF ) TABLET BY MOUTH AT BEDTIME NEEDED FOR INSOMNIA active Not Available Not Available No t Available losartan 100 mg tablet TAKE 1 TABLET BY MOUTH ONCE DAILY active Not Available Not Available No t Available finasteride 5 mg tablet 10/10 completed Not Available Not Available Not Available oxycodone 5 mg tablet 01/27 completed Not Available Not Available Not Available olmesartan 40 mg tablet TAKE 1 TABLET BY MOUTH ONCE DAILY active Not Available Not Available No t Available Flovent HFA 110 mcg/actuati on aerosol inhaler INHALE 2 PUFFS BY MOUTH TWICE DAILY active Not Available Not Available No t Available magnesium active Not Available Not Dhara ilable Not Available Vitamin C 10/10 completed Not Available Not Available Not Available saw palmetto 01/11 completed Not Available Not Available Not Available Lipitor 01/11 completed Not Available Not Available Not Available Fish Oil 10/12 completed Not Available Not Available Not Available hydrochloro thiazide 10/12 completed Not Available Not Available Not Available losartan 09/27 completed Not Available Not Available Not Available multivitami n 09/27 completed Not Available Not Available Not Available Exoderm 10/10 completed Not Available Not Available Not Available CoQ-10 active Not Available Not Availa ble Not Available diclofenac 1 % topical gel active Not Available Not Available Not Available silodosin 8 mg capsule 10/10 completed Not Available Not Available Not Available coQ10 (ubiquinol) 10/12 completed Not Available Not Available Not Available sodium,pota ssium,mag sulfates 17.5 gram-3.13 gram-1.6 gram oral soln USE DIRECTED active Not Available Not Available No t Available metoprolol franz-hydrochl orothiaz 09/27 completed Not Available Not Available Not Available turmeric 500 mg-black pepper extract 3 mg capsule Take by oral route. 08/01 completed Not Available Not Available Not Available Fluzone High-Dose 2019-20 (PF) 180 mcg/0.5 mL intramuscul ar syringe PHARMACIS T ADMINISTE RED IMMUNIZAT ION ADMINISTE RED AT TIME OF DISPENSIN G 01/11 completed Not Available Not Available Not Available Paxlovid 300 mg (150 mg x 2)-100 mg tablets in a dose pack TAKE 3 TABLETS TOGETHER (TWO 150 MG NIRMATREL VIR TABLETS AND ONE 100 MG RITONAVIR TABLET) BY MOUTH TWICE DAILY FOR 5 DAYS. active Not Available Not Available No t Available Vitals Date Recorded Body height Body mass index (BMI) Body weight Provider Name and Address Organization Details Last Updated DateTime 10/10/2020 167.64 cm 32.3 kg/m2 15772.47 g Korey Mesa [place] - [facility] 10/10/2020 13:48:49 Date Recorded Body height Body mass index (BMI) Body weight Provider Name and Address Organization Details Last Updated DateTime 01/27/2023 167.64 cm 30.3 kg/m2 05846.37 g Shanda Lindquisterrol [facility] 01/27/2023 09:20:32 Date Recorded Body height Provider Name an d Address Organization Details Last Updated DateTime 07/23/2023 167.64 cm Dee Dee Rowland [facility] 07/23/2023 14:29:58 Date Recorded Body height Body mass index (BMI) Body weight Provider Name and Address Organization Details Last Updated DateTime 12/22/2019 167.64 cm 32.3 kg/m2 36306.47 g JULY MOON [address] [place] [address], [phone] [place] [address] [facility] 12/22/2019 11:33:13 Social History Question Answer Notes LastModified by Organizat ion Details LastModified Time Tobacco Smoking Status Former Smoker [facility] 10/10/2020 13:51:21 What Is Your Level Of Alcohol Consumption? Moderate Information not available 08/02/2022 Auto Related Injury? No Information not available 08/02/2022 Do You Or Have You Ever Used E-cigarettes Or Vape? 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 Yes [email or web address] Information not available 09/30/2014 What Was The Date Of Your Most Recent Tobacco Screening? 10/12/2018 Information not available 08/02/2022 Do You Or Have You Ever Used Smokeless Tobacco? Never Used Smokeless Tobacco [email or web address] Information not available 10/10/2020 How Much Tobacco Do You Smoke? No Information not available 08/02/2022 How Many Years Have You Smoked Tobacco? 15 [email or web address] Information not available 10/10/2020 Work Related Injury? No Information not available 08/02/2022 Sex: Unknown Functional Status None recorded. Mental Status None recorded. Family History Relationship Description Onset Age of this Age Resolved Age Notes LastModified by Organization Details LastModified Time Father No current problems or disability [email or web address] Not available 12:47:33 Mother No current problems or disability Not available 12:47:33 Notes:adopted but did DNA te st Medical History Condition Response HIV or AIDS N High Blood Pressure Y Irregular Heartbeat Y Any Other Significant Medical Issues N Weight Gain / Loss N Hearing Loss Y Angina, Heart Failure or Attack N Night Sweats N Seizures / Epilepsy N Osteoarthritis / Rheumatoid arthritis / Other Y Cancer N Stroke N Ulcer / Stomach Bleeding / Indigestion N Visual Loss or Glaucoma N Blood Clots / Phlebitis N Heart Problems Y Depression or Anxiety N Emphysema / Chronic Bronchitis N Reaction to General/Local Anesthesia N Hepatitis / Jaundice Y Kidney / Bladder Infections N Diabetes N Bleeding Disorder N Chemical Dependency / Alcoholism N Psoriasis / Skin Rash N Thyroid Disorder N Heart Disease Y Asthma / Shortness of Breath / Sleep Sample Sawyer ea (please specify) Y Pulmonary Embolism N Immunizations Vaccine Type Date Status Note Provider Nam e and Address Organization Details Recorded Time SARS-COV-2 (COVID-19) vaccine, UNSPECIFIED 05/19/2020 completed Korey rosado [facility] 10/10/2020 13:50:52 SARS-COV-2 (COVID-19) vaccine, UNSPECIFIED 06/16/2020 completed Korey rosado [facility] 10/10/2020 13:50:55 Past Encounters Encounter ID Performer Location Encounter Start Date Encounter Closed Date Diagnosis/Indication Diagnosis SNOMED-CT Code Diagnosis ICD10 Code [id number] [address] [address] 09/30/2014 09:11:10 09/30/2014 12:05:25 Ankle pain 333825936 Lumbar radiculopathy 128 410796 Acquired c avus deformity of foot 54555480 Acquired d eformity of ankle AND/OR foot 28081211 [id number] JULY MOON [address] [address] 09/27/2016 10:27:38 09/27/2016 12:14:39 Ankle pain 685351063 M25.572 Acquired c avus deformity of foot 47565140 M21.6X1 Muscle weakness 84491543 M62.81 [id number] JULY MOON [address] [address] 10/12/2018 09:20:16 10/12/2018 10:47:47 Osteoarthritis 032696830 M19.072 Acquired c avus deformity of foot 04070482 M21.6X2 Left foot drop 478180203 1 52518 M21.372 [id number] JULY MOON [address] [address] 01/11/2019 11:57:32 01/11/2019 13:40:19 Osteoarthritis 297552354 M19.172 Foot-drop 9944675 M21.37 2 [id number] JULY MOON [address] [address] 12/22/2019 08:25:18 12/22/2019 13:41:17 Left foot drop 2326388303 74361 M21.372 Osteoarthritis 133131218 M19.172 [id number] JULY CROOKS [address] [address] 10/10/2020 13:15:57 10/10/2020 15:40:58 [id number] ELIEL NINO MD [place] [facility],[address] [address] 08/02/2022 12:06:43 08/02/2022 13:26:24 Osteoarthritis 715087559 M19.072 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 5873976546 316188 M21.6X1 Left foot drop 700212587 1 76123 M21.121 [id number] Dariana Jamisonck [address] [address] 01/27/2023 09:03:00 01/27/2023 13:26:57 Rupture of tendon of biceps, long head 51964196 S46.111A [id number] JULY CROOKS [address] [address] 07/23/2023 13:52:38 07/23/2023 16:15:30 Full thickness rotator cuff tear 511289752 M75.122 Localized, primary osteoarthritis of the shoulder region 176516216 M19.011 Health Concerns Section Related Observation LastModified by Organization Detai ls LastModified Time None Recorded Concern Status LastModified by Organization Details LastModified Time None Recorded Advance Directives Directive None Recorded Payers Encounter Date Sequence Insurance Name Policy Number Policy Sosa Covered Member ID Sosa Member ID Guarantor Name 12/22/2019 1 [place]ICARE [place]: [facility] Allen O Lazaro [id number] Allen O Lazaro 12/22/2019 2 [facility] (MEDICARE SUPPLEMENT) Allen O Lazaro [id number] Allen O Lazaro 10/10/2020 1 MEDICARE [place]: [facility] Allen O Lazaro [id number] Allen O Lazaro 10/10/2020 2 [facility] (MEDICARE SUPPLEMENT) Allen O Lazaro [id number] Allen O Lazaro 08/02/2022 1 MEDICARE B-[place]: [facility] Allen O Lazaro [id number] Allen O Lazaro 08/02/2022 2 [facility] (MEDICARE SUPPLEMENT) Allen O Lazaro [id number] Allen O Lazaro 01/27/2023 1 MEDICARE [place]: [facility] Allen O Lazaro [id number] Allen O Lazaro 01/27/2023 2 [facility] (MEDICARE SUPPLEMENT) Allen O Lazaro [id number] Allen O Lazaro 07/23/2023 1 MEDICARE B-[place]: [facility] Allen O Lazaro [id number] Allen O Lazaro 07/23/2023 2 [facility] (MEDICARE SUPPLEMENT) Allen O Lazaro [id number] Allen O Lazaro Notes Date Note Type Note Provider Name and Address Organization Details Recorded Time 12/22/2019 text/html COVID-19 STATEME NT: This visit is a real-time interactive audio/visual TeleHealth visit conducted via [employer] due to the National Emergency and ongoing COVID-19 Pandemic restrictions on movement. Allen was identified by name and date of , 1945, and consented to this TeleHealth visit. Starting TeleHealth time was 11:05 a.m., ending time was 11:17 a.m. He was resting comfortably at his home in [place], [place] and I was at my home office in [place], [place]. PMH: Past medical history, past surgical history, review of systems, and current medications have been reviewed and updated in his [place] medical record. ALLERGIES: Cat dander only. HX: This TeleHealth appointment is to review his left ankle bracing. He carries the diagnosis of left drop foot, left lateral hindfoot pain, left ankle valgus arthritis. This is superimposed on a contralateral right ankle fusion with varus hindfoot residual malalignment. He really requires a custom ankle/foot orthosis brace on the left side due to his drop foot and arthritis or he cannot walk safely. He has been using a carbon fiber ToeOFF AFO. Unfortunately, his carbon AFO brace has cracked, and is now not useful for him. He tends to use his carbon fiber ToeOFF brace more frequently than any other bracing he may have because it fits him nicely, fits into shoes better, and allows him to function better without pain. It requires a custom fit due to the deformity in the three planes through the ankle and hindfoot. I find a new carbon fiber ToeOFF brace medically necessary as he has only had this one for 2 years and it is broken. Due to Medicare only paying for one brace every 5 years, this is unacceptable. A replacement brace should be fabricated for him via the company without charge. He requires this brace for safe and functional activities of daily living and walking. JULY MOON [address] [place] [address], [phone], [facility] 12/24/2019 07:26:36 10/10/2020 text/html 75yo M presents today with RIGHT shoulder pain. Patient initially saw Dr. Cabello in [place] regarding total shoulder replacement 3 weeks ago. They did not recommend surgery at that time. Patient has had pain since HS/ college when he threw javelin for track and field. Patient is very active. Recently he has noticed more discomfort and pain with weight lifting, swimming, golf, kayaking when he uses his right shoulder. He does not sleep well and endorses tossing and turning frequently due to right shoulder discomfort. He has no pain in shoulder at rest. Takes excedrin daily with some relief. Takes 600mg ibuprofen when he golfs with good relief. JULY CROOKS [address] [place] [address], [place], [phone], [facility] 10/10/2020 15:15:48 08/02/2022 text/html Mr. Allen Pike on returns to clinic after a 3-year absence. He is followed for left drop foot, left ankle valgus arthritis, right ankle fusion, right varus hindfoot residual malalignment. He comes in today. 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 He is using a solid AFO brace on his left leg and an UCBL orthotic on his right foot. This allows him to golf quite effectively. I reviewed his new bilateral weightbearing foot and ankle x-rays today on [facility]. Left ankle shows valgus hoal-vv-rgew arthritis, right ankle shows previous ankle fusion with retained hardware. ELIEL NINO MD [address] [place] [address], [phone], [facility] 08/07/2022 20:48:32 01/27/2023 text/html 77-year-old male presenting today for left shoulder pain. I previously had seen him for his right shoulder in 2020. He states that the shoulder has been bothering him on and off for approximately 20 years. Most recently he went to [place] where he was very active with hiking and golfing. He states that his pain increased over the time of the trip and she actually developed bruising in the front of the arm. He rates his pain at its worst to be an 8 out of 10 , mainly with overhead activity and sleeping. He reports his shoulder is 60% normal , and has no concerns about range of motion or function. For pain management he has been taking ibuprofen as needed and working on stretching and strengthening exercises independently. He denies any surgery to the left shoulder however does report a history of instability. He has not had any cortisone injections or other therapy for the shoulder. Dariana rosado [facility] 01/28/2023 13:12:12
== END ==
LOC: HO.CARD 10:16
PROVIDERS: PCP Internal Medicine; Visit Provider Internal Medicine
DX: R00.2 Palpitations (principal)
CPT/HCPCS: 93242

== ENCOUNTER → 2024-04-05 10:23 | Outpatient (BNV) | payer MEDICARE, OTHER, SELFPAY | PROVIDERS: PCP Internal Medicine; Visit Provider Internal Medicine | DX: I48.91 Unspecified atrial fibrillation (principal) | CPT/HCPCS: 93244 ==

== ENCOUNTER 2024-09-02 10:30 | Outpatient (AMB) | payer MEDICARE, OTHER, SELFPAY ==
--- NOTE | 2024-09-02 10:43 | MHC.OFFVIS ---
Vital Signs 09/02/24 10:45 Height 5 ft 6 in Weight 210 lb 12.191 oz BMI 34.0 BP 130/64 Blood Pressure Location Lt brachial Position Sitting Pulse 57 Pulse Source Monitor Intake Visit Reasons: 6m follow up Typer Required: No Accompanied by: Spouse Allergies lisinopril Adverse Reaction (Mild, Verified 11/18/23 14:39) Cough Medication List - Last Reconciled 09/02/24 by Nabil Mar MD amlodipine 10 mg PO DAILY apixaban (Eliquis) 5 mg PO BID 90 days jppwcbk-tkhdxaftnmcqh-rkrmuygu 250-250-65 mg (Excedrin Extra Strength) 2 tabs PO Q6H PRN atorvastatin 40 mg PO DAILY cholecalciferol (vitamin D3) 50 mcg PO DAILY diphenhydramine HCl (Benadryl Allergy) 25 mg PO BEDTIME PRN furosemide 40 mg PO DAILY magnesium glycinate mg PO metoprolol succinate ER (Toprol XL) 100 mg PO DAILY olmesartan 40 mg PO DAILY HPI Comments Details: Allen returns for follow-up regarding various cardiac issues. He has a history of coronary artery disease and underwent an LAD stent around 2003. At that time, it seems that he really did not have any NSTEMI or angina but some abnormal test but not very clear what happened. Any case, he has been stable from coronary status since that time. He has a history of difficult to manage hypertension. He was on hydrochlorothiazide but apparently the calcium was going up and it was stopped. His current meds include olmesartan, metoprolol and amlodipine. He already had some baseline leg swelling but it seems to be a bit more after starting amlodipine which is herself concern for him. He underwent a Holter monitor few months back and that showed atrial fibrillation. He had traveled to [place] for the winter and hence saw a local ornamental metal worker who did cardioversion. He remains on beta-blockers that he was taking before. Has been put on anticoagulation. Then got diagnosed with obstructive sleep apnea and got put on CPAP. Overall, he is doing fine for the most part. [facility] Medical History (Updated 09/02/24 @ 11:36 by Nabil Mar MD) HANNAH on CPAP Paroxysmal atrial fibrillation Back pain Transient ischemic attack Osteoarthritis Hydrocele Cataract Left anterior fascicular block Right bundle branch block PVC (premature ventricular contraction) Essential hypertension Atherosclerotic cardiovascular disease Surgical History H/O spinal fusion Family History Father Heart attack Diabetes Social History Alcohol intake: current Comment: 1-2 glasses of wine daily Patient Tobacco Use Status: Former Tobacco user Review of Systems Const Denies chills, Denies fatigue, Denies fever(s), Denies frequent falls, Denies weakness, Denies weight gain and Denies weight loss ENT Denies dizziness Card Denies chest pain, Denies leg edema, Denies lightheadedness, Denies palpitations, Denies dyspnea and Denies dyspnea on exertion Resp Denies cough, Denies dyspnea and Denies dyspnea on exertion GI Denies hematochezia Musc Denies abnormal gait, Denies muscle weakness, Denies numbness, Denies radiating pain into limb and Denies tingling Neuro Denies Abnormal speech present, Denies abnormal gait, Denies dizziness, Denies frequent falls, Denies numbness, Denies tingling and Denies weakness Endo Denies fatigue and Denies palpitations Physical Exam Vital Signs: Last Vital Signs Pulse 57 09/02/24 10:45 BP 130/64 09/02/24 10:45 BMI result Body Mass Index 34.0 Const General: comfortable and no acute distress Orientation/consciousness: patient oriented x3 HEENT Other: Unremarkable Head: Yes normal to inspection Neck Neck: Yes normal visual inspection Chest Chest palpation & inspection: normal inspection of the chest Resp Auscultation: clear to auscultation bilaterally Cardio Palpation: normal PMI Heart sounds: S1 normal heart sound present, S2 normal heart sound present, no gallops, no murmurs and no rubs GI Palpation (GI): Soft to palpation Back/Spine/Pelvis Other: unremarkable Skin General skin exam: no rashes or lesions noted Neuro General: patient oriented x3 Speech: No Abnormal speech present Extrem Other: 1+ swelling, R>L General: Yes normal to inspection Psych Mental Status: mental status grossly normal Office Procedures EKG Details: EKG with sinus bradycardia at 57/Min; right bundle-branch block and left anterior fascicular block. [id number], Complete Assessment & Plan Assessment & Plan (1) Paroxysmal atrial fibrillation: Code(s): I48.0 - Paroxysmal atrial fibrillation Category: Medical Plan: Status post cardioversion. Continue beta-blockers and anticoagulation. If indeed he gets recurrent atrial fibrillation, then could consider ablation (versus antiarrhythmic therapy). (2) Atherosclerotic cardiovascular disease: Code(s): I25.10 - Atherosclerotic heart disease of council coronary artery without angina pectoris Category: Medical Plan: History of LAD stent at [facility] -2003. At that time, no significant lesions in circumflex/RCA. In the echocardiogram, LVEF 63%. Basal inferolateral hypokinesis. No significant valvular findings. Myocardial perfusion imaging study shows no ischemia. Basal inferolateral infarct. He has got no overt angina but considering his age and comorbidities and above findings, do recommended diagnostic catheterization for further assessment. He may remain on statins. Last LDL 60 mg/dL. Triglycerides slightly high at 190 mg/dL. LFTs slightly abnormal but he believes he has had hepatitis many years ago. (3) Essential hypertension: Code(s): I10 - Essential (primary) hypertension Category: Medical Plan: Current regimen includes metoprolol, olmesartan, amlodipine. Home diary shows good control of blood pressures. Off hydrochlorothiazide due to history of hypercalcemia. Because of leg swelling, he would like to cut back on the amlodipine. Okay to try that and he can maintain home diary. If indeed there is any rebound, may need a different medication like spironolactone. We decided. (4) Venous insufficiency: Code(s): I87.2 - Venous insufficiency (chronic) (peripheral) Category: Medical Plan: In the recent venous ultrasound, reflux in the right great saphenous vein at the ankle; left great saphenous vein and left small saphenous vein. Discussed with Interventional Radiology on it was felt that it is not significant enough to cause any major issues. Hence recommended conservative therapy. He is using compression stockings and that can be continued. (5) HANNAH on CPAP: Code(s): G47.33 - Obstructive sleep apnea (adult) (pediatric) Category: Medical Plan Discussed with significant other. Orders: Orders Complete Blood Count no Diff Today I25.10 - Atherosclerotic heart disease of council coronary artery without angina pectoris Cardiac Cath LT Diagnostic Today I25.10 - Atherosclerotic heart disease of council coronary artery without angina pectoris Coding Level of Care Code Est Pt Level 4 (65874) Complex EM visit Add On G2211 Diagnoses Paroxysmal atrial fibrillation I48.0 Atherosclerotic cardiovascular disease I25.10 Essential hypertension I10 Venous insufficiency I87.2 HANNAH on CPAP G47.33 CPT Codes EKG - CPT: 83244-Jhioipbkfrpxtispb, Complete ([id number])
[2024-09-02 10:45] VITALS: BP 130/64; PULSE 57; BMI 34.0
--- OUTSIDE RECORDS SUMMARY | 2024-09-02 10:57 | XMS_ITS | Data Portability ---
Author Organization [place] - [facility] [place], [facility] - INPATIENT Address [address] [place] [address] Care Team Providers Care Odd Bundle Worker Name Role Phone SEKOU BRADLEY Primary Care Provider [phone] Assessment Encounter Date Assessment Date Assessment LastModified by Organization Details LastModified Time 10/10/2020 10/10/2020 Diagnostic Imaging: Grashey, axillary, and [...] 3 weeks prior that patient received in [place]. Patient has full range of motion with [...] RIGHT shoulder arthritis. This visit is a zerp-jw-mknw visit during the COVID-19 pandemic. Based on [...] all services provided today in accordance with [facility] and CDC Guidelines. There was additional practice expense incurred due to the Public Health Emergency. This additional expense includes but is not limited to: - Additional clinical staff and medical technical service engineer time for pre-screening - Time spent reviewing [...] the patient consented to proceeding with the procedure. Under sterile conditions, the shoulder was prepped with alcohol and Betadine. Sterile ultrasound gel and the [employer] Ultrasound was used to ensure accurate needle [...] ice, NSAIDs, or Tylenol for pain as needed. Not available 07/23/2023 14:55:25 08/12/2024 08/12/2024 Impression: 78-year-old male with left global foot drop; varus ankle arthritis? controlled with AFO bracing; right ankle fusion with varus hindfoot positioning? controlled with UCBL plan: It was a pleasure seeing Allen and his back in clinic. He is going to continue working with [facility] to get his brace more comfortable. He reports that his lower legs are swelling more than usual so he will work with this current brace which is a bit big. If his swelling dissipates I will change of medications and he will need a new custom AFO brace as the current one will not fit and stabilize him as needed. He will reach out if he needs a new brace prescription. Otherwise follow-up as needed. [email or web address] Not available 08/12/2024 16:13:32 Plan of Treatment Reminders Order Date Submit Date Provider Last Modified By Organization Details Last Modified Time Details Appointments None recorded. Lab None recorded. Referral None recorded. Procedures None recorded. Surgeries None recorded. Imaging MRI, shoulder, w/o contrast - Left shoulder MRIPAS, please call pt to schedule, thank you 2022 023 [email or web address] 3 [facility] ([facility]), [address] [place] [address], [address], 06:53:56 Medication Orders None recorded. Patient TargetsNo targets recorded. Patient InstructionsNo instructions recorded. Reason for Referral None Reported. Results Created Date Observation Date Name Description Value Unit Range Abnormal Flag Note LastModifiedBy Organization Detail LastModifiedTime 08/03/19 img:x r foot and ankle left 5 views No observ ation record ed. [employer] [address], [address] 08/02/2022 15:14:40 08/03/19 img:x r foot and ankle right 5 views No observ ation record ed. [employer] [address] [place], [address] 08/02/2022 15:14:40 08/03/19 23 08/02/2022 xr foot and ankle left 5 views Fin al Report EXAM#: [id number] PROCED URE: DXR 0038 XR FOOT [...] BOUDREAUX M.D. On: Aug 02 2022 2:27P [address] [facility] [address] [place], [address], 08/02/2022 15:14:39 08/03/19 23 08/02/2022 xr foot and ankle right 5 views Fin al Report EXAM#: [id number] PROCED URE: DXR 0039 XR FOOT [...] BOUDREAUX M.D. On: Aug 02 2022 2:28P [address] [facility] [address] [place], [address], 08/02/2022 15:14:39 02/08/20 23 02/06/2023 MRI, velma mello, w/o karan Arriola in 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 AC joint: Modera te AC joint [...] umeral osteoa rthrit is/rot ator cuff arthro usn. 5. Modera te AC joint arthro sun. Electr onical ly Signed By: Porter alejandre MD [facility] ([facility]) [address] [place] [address], [address], 02/07/2023 15:35:55 Result Notes None recorded. Problems Name Problem SNOMED Code Status Onset Date Resolution Date Notes Provider Name and Address Organization Details Recorded Time Ankle pain 829078896 Active [facility] [place] 5 12:05:10 Lumbar radiculop athy 825872983 Active [facility] [place] 5 12:05:10 Acquired cavus deformity of foot 36994230 Active [facility] [place] 5 12:05:10 Acquired deformity of ankle AND/OR foot 11883499 Active [facility] [place] 5 12:05:10 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 2 01:06:03 History of total knee arthropla sty 27255437368 05 Active 2014 Not Available [facility] 2 01:06:03 Localized , primary osteoarth ritis 475271113 Active 2014 Localized , primary osteoarth ritis Not Available [facility] 2 01:06:03 Osteoarth ritis of pelvis 063153341 Active 2011 Degenerat aixa joint disease of pelvis Not Available [facility] 2 01:06:03 Osteoarth ritis of knee 697785902 Active 2014 Osteoar thritis of knee Not Available [facility] 2 01:06:03 Full thickness rotator cuff tear 819151670 Active 2022 JULY CROOKS [address] [place] [address], [phone] , [facility] [place] 3 15:11:20 Localized , primary osteoarth ritis of the shoulder region 660881708 Active 2023 JULY CROOKS [address] [place] [address], [phone] , [facility] [place] 4 14:55:44 Problem Notes None recorded. Procedures Surgical History Date Name Laterality Status Provider Name and Address Organization Details Recorded Time 01/27/20 20 Other completed Korey Mesa [facility] [place] 10/10/2020 13:53:07 02/24/20 19 Orthopaedic Surgery completed Korey Mesa [facility] [place] 10/10/2020 13:53:12 01/06/20 15 Orthopaedic Surgery completed Korey Mesa [facility] [place] 10/10/2020 13:52:32 04/07/19 13 Orthopaedic Surgery completed Brooklynn Biswas [place] [facility] [place] 09/30/2014 11:22:14 04/07/19 12 Orthopaedic Surgery completed Brooklynn Biswas [facility] [place] 09/30/2014 11:22:14 04/07/19 03 Orthopaedic Surgery completed Brooklynn Biswas [facility] [place] 09/30/2014 11:22:14 04/07/19 02 Orthopaedic Surgery completed Brooklynn Biswas [facility] [place] 09/30/2014 11:22:14 Imaging Results None recorded. Procedure Notes None recorded. Medical Equipment None Reported. Allergies Allergen ID Allergen Name Allergen Category Reaction Reaction Severity Criticality Documentation Date Start Date Code Code System Note Provider Name and Address Organization Details Recorded Time 721631 cat dander environme nt Not available Not available Not available 10/12/2018 98143 UNK Catherine Ochoa [facility] [place] 9 10:11:54 No known drug allergies Medications Name Sig Start Date Stop Date Status Note LastModified by Organization Details LastModified Time losartan 50 mg tablet TAKE 1 TABLET BY MOUTH ONCE DAILY 08/11 completed Not Available Not Available Not Available atorvastati n 40 mg tablet TAKE 1 TABLET BY MOUTH AT BEDTIME active Not Available Not Available No t Available neomycin-po lymyxin-hyd rocort 3.5 mg/mL-10,00 0 unit/mL-1 % ear solution APPLY 2 DROPS TOPICALLY TWICE DAILY 08/11 completed Not Available Not Available Not Available atorvastati n 20 mg tablet TAKE 1 TABLET BY MOUTH ONCE DAILY 08/12 completed Not Available Not Available Not Available Toprol XL 100 mg tablet,exte nded release Take 1 tablet every day by oral route. active Not Available Not Available No t Available aspirin 325 mg tablet Take 1 tablet every day by oral route. 10/12 completed Not Available Not Available Not Available metoprolol succinate ER 50 mg tablet,exte nded release 24 hr TAKE 1 TABLET BY MOUTH ONCE DAILY active Not Available Not Available No t Available Lasix 40 mg tablet Take 1 tablet every day by oral route. active Not Available Not Available No t Available prednisone 20 mg tablet TAKE 3 TABLETS BY MOUTH ONCE DAILY IN THE MORNING FOR 7 DAYS, THEN 2 TABS DAILY FOR 2 DAYS, THEN 1 TAB DAILY FOR 2 DAYS, THEN 1/2 (ONE-HALF ) TAB ONCE DAILY FOR 2 DAYS 08/11 completed Not Available Not Available Not Available fluorouraci l 5 % topical cream APPLY CREAM TOPICALLY TO AFFECTED AREA TWICE DAILY FOR TWO TO FOUR WEEKS OR UNTIL THE AREA IS RED AND SCABBY THEN APPLY OVER THE COUNTER HYD 10/10 completed Not Available Not Available Not Available amlodipine 2.5 mg tablet TAKE 1 TABLET BY MOUTH ONCE DAILY 08/12 completed Not Available Not Available Not Available amlodipine 5 mg tablet TAKE 1 TABLET BY MOUTH ONCE DAILY 08/12 completed Not Available Not Available Not Available ciprofloxac in 500 mg tablet TAKE 1 TABLET BY MOUTH EVERY 12 HOURS 10/10 completed Not Available Not Available Not Available tramadol 50 mg tablet TAKE 1 TABLET BY MOUTH ONCE DAILY 08/01 completed Not Available Not Available Not Available amoxicillin 500 mg tablet TAKE 2 TABLETS BY MOUTH NOW. THEN TAKE 1 TABLET EVERY 8 HOURS UNTIL GONE 08/12 completed Not Available Not Available Not Available tamsulosin 0.4 mg capsule 10/10 completed Not Available Not Available Not Available imiquimod 5 % topical cream packet 10/10 completed Not Available Not Available Not Available amlodipine 10 mg tablet TAKE 1 TABLET BY MOUTH ONCE DAILY active Not Available Not Available No t Available benzonatate 100 mg capsule TAKE 1 CAPSULE BY MOUTH TWICE DAILY NEEDED FOR COUGH 08/12 completed Not Available Not Available Not Available cephalexin 500 mg capsule TAKE 1 CAPSULE BY MOUTH 4 TIMES DAILY FOR 21 DAYS 08/11 completed Not Available Not Available Not Available gabapentin 300 mg capsule 10/10 completed Not Available Not Available Not Available aspirin 81 mg chewable tablet Chew 1 tablet every day by oral route. 08/11 completed Not Available Not Available Not Available montelukast 10 mg tablet 10/12 completed Not Available Not Available Not Available hydrochloro thiazide 25 mg tablet TAKE 1 TABLET BY MOUTH ONCE DAILY 08/11 completed Not Available Not Available Not Available furosemide 20 mg tablet TAKE 1 TABLET BY MOUTH ONCE DAILY 08/12 completed Not Available Not Available Not Available gabapentin 100 mg capsule 10/10 completed Not Available Not Available Not Available zolpidem 10 mg tablet TAKE 1/2 (ONE-HALF ) TABLET BY MOUTH AT BEDTIME NEEDED FOR INSOMNIA 08/11 completed Not Available Not Available Not Available losartan 100 mg tablet TAKE 1 TABLET BY MOUTH ONCE DAILY 08/11 completed Not Available Not Available Not Available finasteride 5 mg tablet 10/10 completed Not Available Not Available Not Available oxycodone 5 mg tablet 01/27 completed Not Available Not Available Not Available olmesartan 40 mg tablet TAKE 1 TABLET BY MOUTH ONCE DAILY active Not Available Not Available No t Available Flovent HFA 110 mcg/actuati on aerosol inhaler INHALE 2 PUFFS BY MOUTH TWICE DAILY 08/11 completed Not Available Not Available Not Available magnesium active Not Available Not Dhara [...] Not Available Not Available Not Available CoQ-10 08/12 completed Not Available Not Available Not Available diclofenac 1 % topical gel 08/12 completed Not Available Not Available Not Available silodosin 8 mg capsule 10/10 completed Not Available Not Available Not Available coQ10 (ubiquinol) 10/12 completed Not Available Not Available Not Available sodium,pota ssium,mag sulfates 17.5 gram-3.13 gram-1.6 gram oral soln USE DIRECTED 08/11 completed Not Available Not Available Not Available metoprolol franz-hydrochl orothiaz 09/27 completed Not Available Not Available Not Available Eliquis 5 mg tablet Take 1 tablet twice a day by oral route. active Not Available Not Available No t Available Arnuity Ellipta 100 mcg/actuati on powder for inhalation INHALE 1 PUFF BY MOUTH ONCE DAILY 08/12 completed Not Available Not Available Not Available [...] BY MOUTH TWICE DAILY FOR 5 DAYS. 08/11 completed Not Available Not Available Not Available Vitals Date Recorded Body height Provider Name an d Address Organization Details Last Updated DateTime 07/23/2023 167.64 cm Dee [facility] [place] 07/23/2023 14:29:58 Date Recorded Body height Body mass index (BMI) Body weight Provider Name and Address Organization Details Last Updated DateTime 08/12/2024 167.64 cm 32.3 kg/m2 17353.47 g Julianna Jones [facility] [place] 08/12/2024 12:54:48 Date Recorded Body height Body mass index (BMI) Body weight Provider Name and Address Organization Details Last Updated DateTime 10/10/2020 167.64 cm 32.3 kg/m2 27778.47 g Korey Mesa [facility] [place] 10/10/2020 13:48:49 Date Recorded Body height Body mass index (BMI) Body weight Provider Name and Address Organization Details Last Updated DateTime 01/27/2023 167.64 cm 30.3 kg/m2 54732.37 g Shanda Hirsch [facility] [place] 01/27/2023 09:20:32 Social History Question Answer Notes LastModified by Organizat ion Details LastModified Time Tobacco Smoking Status Former Smoker Korey Mesa [facility] [place] 10/10/2020 13:51:21 Auto Related Injury? No Information not available 08/02/2022 Have You Had Cortisone? Yes [email or web address] Information not available 09/30/2014 What Was The Date Of Your Most Recent Tobacco Screening? 10/12/2018 Information not available 08/02/2022 How Much Tobacco Do You Smoke? No Information not available 08/02/2022 How Many Years Have You Smoked Tobacco? 15 [email or web address] Information not available 10/10/2020 Work Related Injury? No Information not available 08/02/2022 Sex: Unknown Functional Status Question Answer Note LastModified by Organizat ion Details LastModified Time What is your level of alcohol consumption? Occasional Information not available 08/12/2024 Do you or have you ever used smokeless tobacco? 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 Never used electronic cigarettes [email or web address] Information not available 10/10/2020 What is your exercise level? None [email or web address] Information not available 08/12/2024 Mental Status None recorded. Family History Relationship Description Onset Age of this Age Resolved Age Notes LastModified by Organization Details LastModified Time Father No current problems or disability [email or web address] Not available 12:47:33 Mother No current problems or disability [email or web address] Not available 12:47:33 Notes:adopted but did DNA te st Medical History Condition Response HIV or AIDS N High Blood Pressure Y Weight Gain / Loss N Angina, Heart Failure or Attack N Night Sweats N Osteoarthritis / Rheumatoid arthritis / Other Y Cancer N Stroke N Visual Loss or Glaucoma N Heart Problems Y Emphysema / Chronic Bronchitis N Reaction to General/Local Anesthesia N Hepatitis / Jaundice Y Kidney / Bladder Infections N Bleeding Disorder N Chemical Dependency / Alcoholism N Thyroid Disorder N Pulmonary Embolism N Irregular Heartbeat Y Any Other Significant Medical Issues Y Hearing Loss Y Seizures / Epilepsy N Ulcer / Stomach Bleeding / Indigestion N Blood Clots / Phlebitis N Depression or Anxiety N Diabetes N Psoriasis / Skin Rash N Heart Disease Y Asthma / Shortness of Breath / Sleep Drain Cleaner ea (please specify) Y Immunizations Vaccine Type Date Status Note Provider Nam e and Address Organization Details Recorded Time SARS-COV-2 (COVID-19) vaccine, UNSPECIFIED 05/19/2020 completed Korey rosado [place] [facility] [place] 10/10/2020 13:50:52 SARS-COV-2 (COVID-19) vaccine, UNSPECIFIED 06/16/2020 completed Korey rosado [place] [facility] [place] 10/10/2020 13:50:55 Past Encounters Encounter ID Performer Location Encounter Start Date Encounter Closed Date Diagnosis/Indication Diagnosis SNOMED-CT Code Diagnosis ICD10 Code Diagnosis Note [id number] JULY PERKINS [address] [address] 09/30/2014 09:11:10 09/30/2014 12:05:25 Ankle pain 305724460 Lumbar radiculopathy 301759383 Acquired c avus deformity of foot 62015435 Acquired d eformity of ankle AND/OR foot 72501138 [id number] JULY PERKINS [address] [address] 09/27/2016 10:27:38 09/27/2016 12:14:39 Ankle pain 341482385 M25.572 Acquired c avus deformity of foot 93469462 M21.6X1 Muscle weakness 50269217 M62.81 [id number] ELIEL LEMUS MD [address] [address] 10/12/2018 09:20:16 10/12/2018 10:47:47 Osteoarthritis 494069814 M19.072 Acquired c avus deformity of foot 27638937 M21.6X2 Left foot drop 170182568 1 92152 M21.372 [id number] JULY PERKINS [address] [address] 01/11/2019 11:57:32 01/11/2019 13:40:19 Osteoarthritis 021751924 M19.172 Foot-drop 1137613 M21.37 2 [id number] JULY PERKINS [address] [address] 12/22/2019 08:25:18 12/22/2019 13:41:17 Left foot drop 2568881274 81266 M21.372 Osteoarthritis 707631922 M19.172 [id number] JUYL CROOKS [address] [address] 10/10/2020 13:15:57 10/10/2020 15:40:58 [id number] ELIEL LEMUS MD [facility] Office [address] [address] 08/02/2022 12:06:43 08/02/2022 13:26:24 Osteoarthritis 053218272 M19.072 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 1729487073 014874 M21.6X1 Left foot drop 489172668 1 33141 M21.258 [id number] JULY CROOKS [address] [address] 01/27/2023 09:03:00 01/27/2023 13:26:57 Rupture of tendon of biceps, long head 27780028 S46.111A [id number] [facility] [address] [place] [address] 07/23/2023 13:52:38 07/23/2023 16:15:30 Full thickness rotator cuff tear 873213005 M75.122 Localized, primary osteoarthritis of the shoulder region 857924308 M19.646 [id number] JULY Perkins [facility] [address] [place] [address] 08/12/2024 12:26:39 08/12/2024 15:20:03 Congenital pes cavus of right foot 0010829334 7757626 Q66.71 Left foot drop 263876448 1 42452 M21.372 Chronic ankle pain 22744 46686 9109 M25.572 G89.29 Primary osteoarthritis of ankle 321616683 M19.072 Health Concerns Section Related Observation LastModified by Organization Detai ls LastModified Time None Recorded Concern Status LastModified by Organization Details LastModified Time None Recorded Advance Directives Directive None Recorded Payers Insurance Date Sequence Insurance Name Policy Number Policy Sosa Covered Member ID Sosa Member ID Guarantor Name 08/17/2024 2 [facility] (MEDICARE SUPPLEMENT) Allen Willis [id number] Allen Willis 08/10/2024 1 MEDICARE B-[place]: [employer] Allen Willis [id number] Allen Willis 10/05/2018 2 [facility] (MEDICARE SUPPLEMENT) Allen Willis [id number] Allen Willis 08/09/2024 [employer] [employer] (MEDICARE DME REGION A) Allen Willis [id number] Allen Willis Notes Date Note Type Note Provider Name and Address Organization Details Recorded Time 10/10/2020 text/html 75yo M presents today with RIGHT shoulder pain. Patient initially saw Dr. Cabello in [place] regarding total shoulder replacement 3 weeks ago. [...] he golfs with good relief. JULY CROOKS [address] [place], [address], [facility] [place] 10/10/2020 15:15:48 08/02/2022 text/html Mr. Allen arriaza returns to clinic after a 3-year absence. He is followed for left drop foot, left ankle valgus arthritis, right ankle fusion, right varus hindfoot residual malalignment. He comes in today. He has found a good supervisor grading. He is using a solid AFO brace on his left leg and an UCBL orthotic on his right foot. This allows him to golf quite effectively. I reviewed his new bilateral weightbearing foot and ankle x-rays today on [facility]. Left ankle shows valgus jkwq-jv-bglp arthritis, right ankle shows previous ankle fusion with retained hardware. ELIEL LEMUS MD [address] [place], [address], [facility] [place] 08/07/2022 20:48:32 01/27/2023 text/html 77-year-old male presenting today for left shoulder pain. I previously had seen him for his right shoulder in 2020. He states that the shoulder has been bothering him on and off for approximately 20 years. Most recently he went to [place] where he was very active with hiking [...] other therapy for the shoulder. Dariana rosado [place] - [facility] [place] 01/28/2023 13:12:12 08/12/2024 text/html Allen returns t o clinic with his . He was last seen by Dr. Lemus on 08/02/2022. He has been managing his bilateral foot/ankle problems with bracing. He has the following orthopedic diagnoses:1. Prior right ankle fusion with cavus hindfoot fixed position2. Left varus ankle arthritis3. Left global foot drop due to prior spine injury Allen has been using a solid AFO brace on the left to support his foot drop and global weakness as well as to try to give him relief for his ankle arthritis. He does report going to [place] and getting a new brace fabricated by [facility] in [place] as his prior brace literally cracked it was unusable. He has been working with the [facility] up here in [place] near his home to make this more comfortable as he first could not wear the brace. He is finding it is getting a bit better with 8 modifications. On his contralateral right side he has been using a UCBL for some support for his hindfoot varus position. His dehydrogenation supervisor did supplement this which has made it more comfortable. He uses a cane for balance for gait as he has balance is quite challenged. He wanted to return to clinic for reassessment, x-rays and to discuss bracing. JULY Perkins [address] [place] [address], [address], [facility] [place] 08/12/2024 16:13:36
== END 2024-09-02 11:54 | disposition home or self-care (01) ==
LOC: HO.HCS 10:31
PROVIDERS: PCP Internal Medicine; Visit Provider Internal Medicine
DX: I48.0 Paroxysmal atrial fibrillation (principal); I25.10 Atherosclerotic heart disease of native coronary artery without angina pectoris; I10 Essential (primary) hypertension; I87.2 Venous insufficiency (chronic) (peripheral); G47.33 Obstructive sleep apnea (adult) (pediatric)
CPT/HCPCS: 93010; 99214; G2211

== ENCOUNTER → 2024-09-02 10:30 | Outpatient (BNVA) | payer MEDICARE, OTHER, SELFPAY | PROVIDERS: PCP Internal Medicine; Visit Provider Internal Medicine | DX: I48.0 Paroxysmal atrial fibrillation (principal); I25.10 Atherosclerotic heart disease of native coronary artery without angina pectoris; I10 Essential (primary) hypertension; I87.2 Venous insufficiency (chronic) (peripheral); G47.33 Obstructive sleep apnea (adult) (pediatric); I45.2 Bifascicular block; R94.31 Abnormal electrocardiogram [ECG] [EKG] | CPT/HCPCS: 93005; 99212 ==

== ENCOUNTER → 2024-09-28 23:59 | Outpatient (BNV) | payer MEDICARE, OTHER, SELFPAY | PROVIDERS: PCP Internal Medicine; Visit Provider Internal Medicine Cardiovascular Disease | DX: R93.1 Abnormal findings on diagnostic imaging of heart and coronary circulation (principal) | CPT/HCPCS: 93458; 93571; 99152 ==

== ENCOUNTER 2024-10-13 12:53 | Outpatient (AMB) | payer MEDICARE, OTHER, SELFPAY ==
--- OUTSIDE RECORDS SUMMARY | 2023-07-23 07:15 | XMS_ITS ---
Author Organization Bill Contreras MD Address [address] [facility] [place] [address] Care Team Providers Care Bogger Operator Name Role Phone Gene Lopez MD Primary Care Provider Unavail able Bill Contreras Unavailable [phone] REASON FOR VISIT s/p V75-Odgiah PSF w/ L5-S1 TLIF (02/23/2019). Medications Medication SIG (Take, Route, Fr equency, Duration) Notes Start Date End Date Status Toprol XL Active Multivitamins Active Hydrochloric Acid Ac tive Losartan Potassium A ctive Aspirin Active Lipitor Active Encounters Encounter Location Date Provider Diagnosis Bill Contreras [facility] [address] [place] [address] [place] [id number] 07/23/2023 Bill Contreras Encounter for follow-up examination after completed treatment for conditions other than malignant neoplasm Z09 ; Encounter for other specified surgical aftercare Z48.89 and Lumbar spondylosis M47.816 Assessments Encounter Date Diagnosis (ICD Code) Assessment Notes Treatment Notes Treatment Clinical Notes Section Notes 07/23/2023 Encounter for follow-up examination after completed treatment for conditions other than malignant neoplasm (ICD-10 - Z09) Mr. Tolliver is a 77 y/o M, s/p N29-Jetbih PSF w/ L5-S1 TLIF (02/23/2019). He is overall doing well. He admits to some left sided SI joint pain in the center of his glutes. This mainly occurs after riding his bike. He feels like his left drop foot is getting worse but his AFO is extremely helpful. He has some pain in the posterior right thigh if he sits too long. The CT Scan looks benign besides a possible loose screw at the left S1 and T10 haloing, as well as L5-S1 non-union.. The patient's SI joint pain, most likely from hypertrophic facets. Was recommended for facet injection if the pain becomes more bothersome. The patient was recommended for further Physical Therapy and core strengthening. The patient should continue his ADLs and ambulations as tolerated and to call the office with any questions or concerns such as fever, chills, severe onset of pain, weakness, or numbness/tinglin g. 07/23/2023 Encounter for other specified surgical aftercare (ICD-10 - Z48.89) Mr. Tolliver is a 77 y/o M, s/p Y39-Ncsftl PSF w/ L5-S1 TLIF (02/23/2019). He is overall doing well. He admits to some left sided SI joint pain in the center of his glutes. This mainly occurs after riding his bike. He feels like his left drop foot is getting worse but his AFO is extremely helpful. He has some pain in the posterior right thigh if he sits too long. The CT Scan looks benign besides a possible loose screw at the left S1 and T10 haloing, as well as L5-S1 non-union.. The patient's SI joint pain, most likely from hypertrophic facets. Was recommended for facet injection if the pain becomes more bothersome. The patient was recommended for further Physical Therapy and core strengthening. The patient should continue his ADLs and ambulations as tolerated and to call the office with any questions or concerns such as fever, chills, severe onset of pain, weakness, or numbness/tinglin g. 07/23/2023 Lumbar spondylosis (ICD-10 - M47.816) Mr. Tolliver is a 77 y/o M, s/p W50-Zqpynx PSF w/ L5-S1 TLIF (02/23/2019). He is overall doing well. He admits to some left sided SI joint pain in the center of his glutes. This mainly occurs after riding his bike. He feels like his left drop foot is getting worse but his AFO is extremely helpful. He has some pain in the posterior right thigh if he sits too long. The CT Scan looks benign besides a possible loose screw at the left S1 and T10 haloing, as well as L5-S1 non-union.. The patient's SI joint pain, most likely from hypertrophic facets. Was recommended for facet injection if the pain becomes more bothersome. The patient was recommended for further Physical Therapy and core strengthening. The patient should continue his ADLs and ambulations as tolerated and to call the office with any questions or concerns such as fever, chills, severe onset of pain, weakness, or numbness/tinglin g. Plan Of Treatment Next Appt Details Follow Up: 6 Months, Reason: Progress Notes * Allen TOLLIVER ODOB: [birth year] (79 yo M)Acc No.[id number]:07/23/2023 Progress Notes Patient: Allen MUELLER Provider: Bobby Contreras MD :1945 A ge:77 Y S ex:Male Date:07/23/2023 Address:[address] [place] [address] [address] [place], [place] [id number] Pcp:Gene Lopez MD Subjective: * Chief Complaints: * 1 . s/p I31-Stpjje PSF w/ L5-S1 TLIF (02/23/2019).. * HPI: B ack Pain: Mr. Tolliver is a 77 y/o M, s/p I10-Olhevr PSF w/ L5-S1 TLIF (02/23/2019). He is overall doing well. He admits to some left sided SI joint pain in the center of his glutes. This mainly occurs after riding his bike. He feels like his left drop foot is getting worse but his AFO is extremely helpful. He has some pain in the posterior right thigh if he sits too long. He admits that he is biking with no issues. Walking and kayaking without back pain anymore. His PT in [place] only worked with stretching before it shut down due to Covid. The patient has begun PT here in [place]. He does have some stiffness in the lower back, but mild. He is golfing without issues. He admits to some left lower buttock pain around the SI joint. Denies any severe onset of pain, numbness or tingling in bilateral upper or lower extremities. He admits weakness in the left ankle which is causing some gait abnormalities. He denies bladder/bowel changes. Ambulating with no issues. He denies fever, chills or sweats. He wishes to discuss his diagnostic studies, results, and symptoms. * Medical History: * Medications: T aking Toprol XL , Taking Lipitor , Taking Hydrochloric Acid , Taking Losartan Potassium , Taking Aspirin , Taking Multivitamins Objective: * Vitals: * Examination: G eneral Examination: H e walks with a slight limp using a cane for balance strength is 5 out of 5 throughout however he is wearing a right-sided AFO for a foot luis felipe. D iagnostic Imaging: S coliosis films 11/28/2021: Stable T10 to the pelvis construct with progressing fusion. There is slight haloing around the T10 screws. . Assessment: * Assessment: 1. E ncounter for follow-up examination after completed treatment for conditions other than malignant neoplasm - Z09 (Primary) 2 . E ncounter for other specified surgical aftercare - Z48.89 3 . L umbar spondylosis - M47.816 Mr. Tolliver is a 77 y/o M, s /p H01-Vtjzwc PSF w/ L5-S1 TLIF (02/23/2019). He is overall doing well. He admits to some left sided SI joint pain in the center of his glutes. This mainly occurs after riding his bike. He feels like his left drop foot is getting worse but his AFO is extremely helpful. He has some pain in the posterior right thigh if he sits too long. The CT Scan looks benign besides a possible loose screw at the left S1 and T10 haloing, as well as L5-S1 non-union.. The patient's SI joint pain, most likely from hypertrophic facets. Was recommended for facet injection if the pain becomes more bothersome. The patient was recommended for further Physical Therapy and core strengthening. The patient should continue his ADLs and ambulations as tolerated and to call the office with any questions or concerns such as fever, chills, severe onset of pain, weakness, or numbness/tingling. Plan: * Treatment: * Follow Up: 6 Months * * Electronic signature of Bill Contreras MD on 10/13/2024 at 01:43 PM EDT Sign off status: Pending * Provider: Bobby Contreras MD Date: 0 07/23/2023 Generated for Shayna medeiros/Erica/Daviditting on: 0 10/13/2024 01:43 PM EDT History and Physical Notes * HPI (History of Present Illness) Category Sub-Category Detail Notes Category Not es Back Pain Mr. Tolliver is a 77 y/o M, s/p U28-Yelodl PSF w/ L5-S1 TLIF (02/23/2019). He is overall doing well. He admits to some left sided SI joint pain in the center of his glutes. This mainly occurs after riding his bike. He feels like his left drop foot is getting worse but his AFO is extremely helpful. He has some pain in the posterior right thigh if he sits too long. He admits that he is biking with no issues. Walking and kayaking without back pain anymore. His PT in [place] only worked with stretching before it shut down due to Covid. The patient has begun PT here in [place]. He does have some stiffness in the lower back, but mild. He is golfing without issues. He admits to some left lower buttock pain around the SI joint. Denies any severe onset of pain, numbness or tingling in bilateral upper or lower extremities. He admits weakness in the left ankle which is causing some gait abnormalities. He denies bladder/bowel changes. Ambulating with no issues. He denies fever, chills or sweats. He wishes to discuss his diagnostic studies, results, and symptoms. Examination Category Sub-Category Detail Notes Category Not es General Examination He walks with a slight limp using a cane for balance strength is 5 out of 5 throughout however he is wearing a right-sided AFO for a foot luis felipe Diagnostic Imaging Scoliosis films 11/28/2021: Stable T10 to the pelvis construct with progressing fusion. There is slight haloing around the T10 screws.
--- NOTE | 2024-10-13 13:03 | A.OFFVIS_ITS ---
Vital Signs 10/13/24 13:05 Height 5 ft 6 in Weight 215 lb 2.738 oz BMI 34.7 BP 130/62 Blood Pressure Location Rt brachial Position Sitting Pulse 61 Pulse Source Pulse Oximeter Intake Visit Reasons: 2 wk follow up s/p Cardiac cath Intake Note: 2 wk f/up s/p cath Parts Control Clerk Required: No Accompanied by: Spouse Allergies lisinopril Adverse Reaction (Mild, Verified 11/18/23 14:39) Cough Medication List - Last Reconciled 10/13/24 by Sarbjit Curran NP amlodipine 5 mg PO DAILY apixaban (Eliquis) 5 mg PO BID 90 days hyrgepu-bixchxtrahgnr-wxebzsar 250-250-65 mg (Excedrin Extra Strength) 2 tabs PO Q6H PRN atorvastatin 40 mg PO DAILY cholecalciferol (vitamin D3) 50 mcg PO DAILY diphenhydramine HCl (Benadryl Allergy) 25 mg PO BEDTIME PRN furosemide 40 mg PO DAILY magnesium glycinate mg PO metoprolol succinate ER (Toprol XL) 100 mg PO DAILY olmesartan 40 mg PO DAILY HPI Comments Details: This is a 79-year-old male patient coming in for a follow-up visit status post cardiac catheterization, accompanied by his . Patient with a history of paroxysmal AFib, coronary artery disease status post prior LAD stent at [facility] in 2003, hypertension, and sleep apnea. Patient underwent an echocardiogram and a myocardial perfusion study back in December of 2023 that showed basal inferolateral hypokinesis and infarct. Initially, patient was managed with medical therapy and later they decided to go ahead with diagnostic cardiac catheterization. Patient is denying any exertional symptoms of chest pain, shortness of breath, palpitations, dizziness, orthopnea, PND, presyncope, or syncope. Patient has been reporting swelling in his bilateral legs mostly in his ankle since starting the amlodipine. Patient states that the brace he wears on his left leg is not fitting correctly and previously he had tried to resize it but the other sizing do not feel comfortable life up current brace. Patient is wondering about coming off the amlodipine. Patient is otherwise reporting compliance with all his medications. [facility] Medical History HANNAH on CPAP Paroxysmal atrial fibrillation Back pain Transient ischemic attack Osteoarthritis Hydrocele Cataract Left anterior fascicular block Right bundle branch block PVC (premature ventricular contraction) Essential hypertension Atherosclerotic cardiovascular disease Surgical History Hx of cardiac cath H/O spinal fusion Family History Father Heart attack Diabetes Social History Alcohol intake: current Comment: 1-2 glasses of wine daily Patient Tobacco Use Status: Former Tobacco user Physical Exam Vital Signs: Last Vital Signs Pulse 61 10/13/24 13:05 BP 130/62 10/13/24 13:05 BMI result Body Mass Index 34.7 Const General: cooperative, healthy appearing, comfortable and no acute distress Orientation/consciousness: patient oriented x3 HEENT Head: Yes normal to inspection Neck Neck: Yes normal visual inspection, Yes trachea midline and Yes supple Chest Chest palpation & inspection: normal inspection of the chest Resp Effort & Inspection: normal respiratory effort Auscultation: clear to auscultation bilaterally, no crackles, no rales, no rhonchi and no wheezes Cardio Jugular venous distension: no JVD Palpation: normal PMI Rate: regular rate Rhythm: regular rhythm Heart sounds: S1 normal heart sound present, S2 normal heart sound present, no click, no gallops, no murmurs and no rubs Peripheral pulses: Peripheral pulses 2+ throughout GI Inspection: Yes normal to inspection Palpation (GI): Soft to palpation Auscultation: normal bowel sounds Skin General skin exam: no rashes or lesions noted Neuro General: patient oriented x3 Extrem General: Yes normal to inspection, No no pedal edema and No calf tenderness Psych Appearance: grossly normal Mental Status: mental status grossly normal Speech and movement: Normal speech and movement present Assessment & Plan Assessment & Plan (1) Atherosclerotic cardiovascular disease: Code(s): I25.10 - Atherosclerotic heart disease of [place] coronary artery without angina pectoris Category: Medical Plan: 12/30/2023-echo study showed a normal LV systolic function with an ejection fraction at 63%, with hypokinetic basal inferolateral segment. 12/30/2023-patient underwent a myocardial perfusion study that showed basal inferolateral infarct. History of coronary artery disease with LAD PCI at [facility] in 2003. Given above findings, initially patient was managed medically however later they decided to goal forward with a diagnostic cardiac catheterization. 09/28/2024-patient underwent cardiac catheterization with Dr. Fu at [facility] that showed iFR of LAD at 0.87. It was decided to medically manage his CAD given the fact that patient is asymptomatic at this time. Plan currently is in case of any exertional symptoms, to consider PCI to the in stent restenosis of the LAD. Continue Eliquis therapy. Continue olmesartan, metoprolol, Lasix, and high-dose statin therapy. Patient states his LDL recently with his PCP has been with an control at 60. Ideally, LDL goal less than 70. (2) Status post cardiac catheterization: Code(s): Z98.890 - Other specified postprocedural states Category: Surgical Plan: As above. Right wrist cardiac catheterization site is well healed. We will refer patient out to cardiac rehab. (3) Paroxysmal atrial fibrillation: Code(s): I48.0 - Paroxysmal atrial fibrillation Category: Medical Plan: Status post cardioversion. In case of recurrent AFib, plan will be to go for ablation. Continue Eliquis for full anticoagulation therapy. Continue metoprolol for rate control approach. No reported signs of bleeding. Recent kidney function within normal limits. (4) Essential hypertension: Code(s): I10 - Essential (primary) hypertension Category: Medical Plan: Blood pressure today is well-controlled. Brings home blood pressures which is also stable. Given his complaints about leg swelling from the amlodipine, we will discontinue this and switch to hydralazine. Advised monitoring blood pressures at home. We will bring patient back in 1 month for a nurse visit for blood pressure check. Ideally, blood pressure goal less than 130/80. (5) HANNAH on CPAP: Code(s): G47.33 - Obstructive sleep apnea (adult) (pediatric) Category: Medical Plan: Continue CPAP therapy. Advised heart healthy diet, regular exercise, med compliance, and management of vascular risk factors. Follow up in 5 months. In the interim, patient will call the office with any concerns or change in symptoms. Advised to seek ER care in case of exertional chest pain not resolved with rest. This note was generated using voice recognition software. While every effort has been made to ensure accuracy and proper traction power engineer, there may be occasional errors that could affect the content or meaning of the described symptoms. Orders: Orders Cardiac Rehab Today Z98.61 - Coronary angioplasty status Medications: New hydralazine 10 mg PO BID 90 tabs 3RF Coding Level of Care Code Est Pt Level 4 (58803) Complex EM visit Add On G2211 Diagnoses Atherosclerotic cardiovascular disease I25.10 Status post cardiac catheterization Z98.890 Paroxysmal atrial fibrillation I48.0 Essential hypertension I10 HANNAH on CPAP G47.33 Time Spent (min) 32 Comment Time spent in reviewing the chart, test results, assessment, counseling and documentation.
[2024-10-13 13:05] VITALS: BP 130/62; PULSE 61; BMI 34.7
--- OUTSIDE RECORDS SUMMARY | 2024-10-13 13:44 | XMS_ITS ---
Author Name [facility] Organization Unknown Encounters Encounter Type Encounter Reason Primary Diagnosis Location Date Ambulatory [facility], [facility] 05/16/2022 Ambulatory [facility] 05[facility]16/2022
== END 2024-10-13 13:37 | disposition home or self-care (01) ==
LOC: HO.HCS 12:54
PROVIDERS: PCP Internal Medicine
DX: I25.10 Atherosclerotic heart disease of native coronary artery without angina pectoris (principal); Z98.890 Other specified postprocedural states; I48.0 Paroxysmal atrial fibrillation; I10 Essential (primary) hypertension; G47.33 Obstructive sleep apnea (adult) (pediatric)
CPT/HCPCS: 99214; G2211

== ENCOUNTER → 2024-10-13 12:53 | Outpatient (BNVA) | payer MEDICARE, OTHER, SELFPAY | PROVIDERS: PCP Internal Medicine | DX: I25.10 Atherosclerotic heart disease of native coronary artery without angina pectoris (principal); Z98.61 Coronary angioplasty status; I10 Essential (primary) hypertension; Z79.01 Long term (current) use of anticoagulants | CPT/HCPCS: 99212 ==